=== PATIENT | male | born 2000 | race Caucasian/White ===

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

== ENCOUNTER → 2018-03-02 10:12 | Outpatient (CLI) | payer OTHER, SELFPAY ==
[2018-03-02 11:32] LABS: Albumin, Serum 1.1 g/dL (3.2-5.0); BUN 12 mg/dL (7-18); BUN/Creat Ratio 9.1 RATIO (10-20); Chloride 111 mmol/L (98-107); Cholesterol 181 mg/dL (200); Creatinine, Serum 1.32 mg/dL (0.70-1.30); EST Glomerular Filtration Rate 73 mL/min (>60); Est Glom Filt Rate - Afr Amer 89 mL/min (>60); Glucose 88 mg/dL (74-106); High Density Lipoprotein 48 mg/dL; Phosphorus 4.1 mg/dL (2.5-4.9); Potassium 3.6 mmol/L (3.5-5.1); Sodium Level 144 mmol/L (136-145); Triglycerides 148 mg/dL; Very Low Density Lipoprotein 30 mg/dL (5-40)
[2018-03-05 17:08] LABS: Cyclosporine 455 ng/mL (100-400)
== END ==
PROVIDERS: Family Provider Physician Assistant; PCP Physician Assistant; Visit Provider Internal Medicine Nephrology
DX: E78.5 Hyperlipidemia, unspecified (principal); N04.1 Nephrotic syndrome with focal and segmental glomerular lesions
CPT/HCPCS: 36415; 80061; 80069; 80158

== ENCOUNTER → 2018-04-08 10:40 | Outpatient (CLI) | payer OTHER, SELFPAY ==
[2018-04-08 13:05] LABS: Protein, Urine (Random) 1246.9 mg/dL (<11.9); Protein:Creat Ratio 9818 mg/g CRE (0-200)
[2018-04-08 13:24] LABS: Albumin, Serum 1.1 g/dL (3.2-5.0); BUN 18 mg/dL (7-18); BUN/Creat Ratio 14.4 RATIO (10-20); Calcium,Total 7.9 mg/dL (8.5-10.1); Chloride 111 mmol/L (98-107); Creatinine, Serum 1.25 mg/dL (0.70-1.30); EST Glomerular Filtration Rate 78 mL/min (>60); Est Glom Filt Rate - Afr Amer 95 mL/min (>60); Glucose 100 mg/dL (74-106); Phosphorus 4.5 mg/dL (2.5-4.9); Potassium 3.7 mmol/L (3.5-5.1); Sodium Level 145 mmol/L (136-145)
== END ==
PROVIDERS: Family Provider Physician Assistant; PCP Physician Assistant; Visit Provider Internal Medicine Nephrology
DX: N04.1 Nephrotic syndrome with focal and segmental glomerular lesions (principal)
CPT/HCPCS: 36415; 80069; 80158; 82570; 84156

== ENCOUNTER → 2018-06-11 12:11 | Outpatient (CLI) | payer OTHER, SELFPAY ==
[2018-06-11 13:22] LABS: Albumin, Serum 1.2 g/dL (3.2-5.0); BUN 34 mg/dL (7-18); BUN/Creat Ratio 21.9 RATIO (10-20); Calcium,Total 8.2 mg/dL (8.5-10.1); Chloride 115 mmol/L (98-107); Creatinine, Serum 1.55 mg/dL (0.70-1.30); EST Glomerular Filtration Rate 61 mL/min (>60); Est Glom Filt Rate - Afr Amer 74 mL/min (>60); Glucose 85 mg/dL (74-106); Phosphorus 4.9 mg/dL (2.5-4.9); Potassium 4.1 mmol/L (3.5-5.1); Sodium Level 145 mmol/L (136-145)
== END ==
PROVIDERS: Family Provider Physician Assistant; PCP Physician Assistant; Visit Provider Internal Medicine Nephrology
DX: N04.1 Nephrotic syndrome with focal and segmental glomerular lesions (principal)
CPT/HCPCS: 36415; 80069; 80158; 82570; 84156

== ENCOUNTER → 2018-06-17 13:50 | Outpatient (CLI) | payer OTHER, SELFPAY ==
[2018-06-17 17:50] LABS: Protein, Urine (Random) 483.8 mg/dL (<11.9); Protein:Creat Ratio 11199 mg/g CRE (0-200)
== END ==
PROVIDERS: Family Provider Physician Assistant; PCP Physician Assistant; Visit Provider Internal Medicine Nephrology
DX: N04.1 Nephrotic syndrome with focal and segmental glomerular lesions (principal)
CPT/HCPCS: 82570; 84156

== ENCOUNTER → 2018-08-18 14:32 | Outpatient (CLI) | payer OTHER, SELFPAY ==
[2018-08-18 17:41] LABS: Albumin, Serum 1.6 g/dL (3.2-5.0); BUN 36 mg/dL (7-18); BUN/Creat Ratio 20.5 RATIO (10-20); Calcium,Total 8.5 mg/dL (8.5-10.1); Chloride 110 mmol/L (98-107); Creatinine, Serum 1.76 mg/dL (0.70-1.30); EST Glomerular Filtration Rate 53 mL/min (>60); Est Glom Filt Rate - Afr Amer 64 mL/min (>60); Glucose 87 mg/dL (74-106); Phosphorus 6.7 mg/dL (2.5-4.9); Potassium 4.7 mmol/L (3.5-5.1); Sodium Level 143 mmol/L (136-145)
[2018-08-18 18:18] LABS: Protein:Creat Ratio 7316 mg/g CRE (0-200)
== END ==
PROVIDERS: Family Provider Physician Assistant; PCP Physician Assistant; Visit Provider Internal Medicine Nephrology
DX: N04.1 Nephrotic syndrome with focal and segmental glomerular lesions (principal)
CPT/HCPCS: 36415; 80069; 82570; 84156

== ENCOUNTER → 2018-12-07 10:50 | Outpatient (CLI) | payer OTHER, SELFPAY ==
[2018-12-07 13:32] LABS: Albumin, Serum 1.5 g/dL (3.2-5.0); BUN 29 mg/dL (7-18); BUN/Creat Ratio 15.8 RATIO (10-20); Calcium,Total 8.1 mg/dL (8.5-10.1); Chloride 115 mmol/L (98-107); Creatinine, Serum 1.83 mg/dL (0.70-1.30); EST Glomerular Filtration Rate 50 mL/min (>60); Est Glom Filt Rate - Afr Amer 61 mL/min (>60); Glucose 111 mg/dL (74-106); Phosphorus 4.5 mg/dL (2.5-4.9); Potassium 4.3 mmol/L (3.5-5.1); Sodium Level 145 mmol/L (136-145)
== END ==
PROVIDERS: Family Provider Physician Assistant; PCP Physician Assistant; Visit Provider Internal Medicine Nephrology
DX: N04.1 Nephrotic syndrome with focal and segmental glomerular lesions (principal)
CPT/HCPCS: 36415; 80069

== ENCOUNTER → 2019-01-06 | Outpatient (CLI) | payer OTHER, SELFPAY ==
[2019-01-06 17:19] LABS: Albumin, Serum 1.4 g/dL (3.2-5.0); BUN 32 mg/dL (7-18); BUN/Creat Ratio 18.2 RATIO (10-20); Chloride 113 mmol/L (98-107); Creatinine, Serum 1.76 mg/dL (0.70-1.30); EST Glomerular Filtration Rate 52 mL/min (>60); Est Glom Filt Rate - Afr Amer 63 mL/min (>60); Glucose 85 mg/dL (74-106); Phosphorus 5.1 mg/dL (2.5-4.9); Sodium Level 143 mmol/L (136-145)
== END | disposition home or self-care (01) ==
LOC: POLAB3 15:08
PROVIDERS: Family Provider Physician Assistant; PCP Physician Assistant; Visit Provider Internal Medicine Nephrology
DX: N17.9 Acute kidney failure, unspecified (principal)
CPT/HCPCS: 36415; 80069

== ENCOUNTER → 2019-03-09 13:45 | Outpatient (CLI) | payer OTHER, SELFPAY ==
[2019-03-09 17:16] LABS: Albumin, Serum 1.9 g/dL (3.2-5.0); BUN 50 mg/dL (7-18); BUN/Creat Ratio 20.1 RATIO (10-20); Calcium,Total 8.6 mg/dL (8.5-10.1); Chloride 113 mmol/L (98-107); Creatinine, Serum 2.49 mg/dL (0.70-1.30); EST Glomerular Filtration Rate 35 mL/min (>60); Est Glom Filt Rate - Afr Amer 42 mL/min (>60); Glucose 87 mg/dL (74-106); Potassium 5.2 mmol/L (3.5-5.1); Sodium Level 143 mmol/L (136-145)
[2019-03-09 17:18] LABS: Protein, Urine (Random) 675.2 mg/dL (<11.9); Protein:Creat Ratio 7553 mg/g CRE (0-200)
[2019-03-09 17:21] LABS: Hematocrit 32.2 % (40-54); Hemoglobin 10.8 g/dL (13.0-16.5); Mean Corp Hgb Conc 33.5 g/dL (32-36); Mean Corpuscular Hgb 29.6 pg (27.0-32.0); Mean Corpuscular Volume 88.2 fL (80-94); Platelet Count 224 K/mm3 (150-450); RBC Distribution Width CV 12.1 % (11.6-14.6); RBC Distribution Width SD 39.2 fl (35.1-43.9); Red Blood Count 3.65 M/mm3 (4.6-6.2); White Blood Count 6.6 K/mm3 (4.4-11.0)
[2019-03-09 17:26] LABS: Vitamin D,25 Hydroxy 29.5 ng/mL (29.95-100.01)
[2019-03-10 08:24] LABS: PTHIN 56.9 pg/mL (18.4-80.1)
== END ==
PROVIDERS: Family Provider Physician Assistant; PCP Physician Assistant; Visit Provider Internal Medicine Nephrology
DX: N04.1 Nephrotic syndrome with focal and segmental glomerular lesions (principal); E55.9 Vitamin D deficiency, unspecified
CPT/HCPCS: 36415; 80069; 82306; 82570; 83970; 84156; 85027

== ENCOUNTER → 2019-04-29 14:06 | Outpatient (CLI) | payer OTHER, SELFPAY ==
[2019-04-29 16:11] LABS: Albumin, Serum 1.8 g/dL (3.2-5.0); BUN 40 mg/dL (7-18); Calcium,Total 7.9 mg/dL (8.5-10.1); Chloride 109 mmol/L (98-107); Creatinine, Serum 2.11 mg/dL (0.70-1.30); EST Glomerular Filtration Rate 42 mL/min (>60); Est Glom Filt Rate - Afr Amer 51 mL/min (>60); Glucose 88 mg/dL (74-106); Phosphorus 4.4 mg/dL (2.5-4.9); Potassium 4.1 mmol/L (3.5-5.1); Sodium Level 139 mmol/L (136-145)
== END ==
PROVIDERS: Family Provider Physician Assistant; PCP Physician Assistant; Visit Provider Internal Medicine Nephrology
DX: E87.5 Hyperkalemia (principal)
CPT/HCPCS: 36415; 80069

== ENCOUNTER → 2019-06-23 14:56 | Outpatient (CLI) | payer OTHER, SELFPAY ==
[2019-06-23 17:16] LABS: Albumin, Serum 1.5 g/dL (3.2-5.0); BUN 45 mg/dL (7-18); BUN/Creat Ratio 18.6 RATIO (10-20); Calcium,Total 8.2 mg/dL (8.5-10.1); Chloride 112 mmol/L (98-107); Creatinine, Serum 2.42 mg/dL (0.70-1.30); EST Glomerular Filtration Rate 36 mL/min (>60); Est Glom Filt Rate - Afr Amer 44 mL/min (>60); Glucose 117 mg/dL (74-106); Phosphorus 5.1 mg/dL (2.5-4.9); Potassium 4.2 mmol/L (3.5-5.1); Sodium Level 143 mmol/L (136-145)
[2019-06-23 17:28] LABS: Protein:Creat Ratio 6790 mg/g CRE (0-200)
[2019-06-24 09:11] LABS: PTHIN 52.2 pg/mL (18.4-80.1)
== END ==
PROVIDERS: Family Provider Physician Assistant; PCP Physician Assistant; Visit Provider Internal Medicine Nephrology
DX: N04.8 Nephrotic syndrome with other morphologic changes (principal)
CPT/HCPCS: 36415; 80069; 82570; 83970; 84156

== ENCOUNTER → 2019-10-29 10:35 | Outpatient (CLI) | payer OTHER, SELFPAY ==
[2019-10-29 11:49] LABS: Hemoglobin 11.4 g/dL (13.0-16.5); Mean Corp Hgb Conc 34.5 g/dL (32-36); Mean Corpuscular Hgb 29.5 pg (27.0-32.0); Mean Corpuscular Volume 85.3 fL (80-94); Mean Platelet Vol. 9.7 fl (6.2-12.0); Platelet Count 262 K/mm3 (150-450); RBC Distribution Width CV 12.2 % (11.6-14.6); RBC Distribution Width SD 37.2 fl (35.1-43.9); Red Blood Count 3.87 M/mm3 (4.6-6.2)
[2019-10-29 12:03] LABS: Albumin, Serum 1.8 g/dL (3.2-5.0); BUN 52 mg/dL (7-18); BUN/Creat Ratio 20.5 RATIO (10-20); Calcium,Total 8.1 mg/dL (8.5-10.1); Chloride 111 mmol/L (98-107); Creatinine, Serum 2.54 mg/dL (0.70-1.30); EST Glomerular Filtration Rate 34 mL/min (>60); Est Glom Filt Rate - Afr Amer 41 mL/min (>60); Glucose 91 mg/dL (74-106); Phosphorus 5.5 mg/dL (2.5-4.9); Potassium 4.3 mmol/L (3.5-5.1); Sodium Level 142 mmol/L (136-145)
[2019-10-29 12:30] LABS: 24HR. UA Prot. Total Volume 1925 mL; Creat.Clear Total Volume 1925 mL; Creatinine Clearance 50 ml/min (100-200); Creatinine Serum Creat 2.5 mg/dL (0.8-1.3); Creatinine Urine 95.3 mg/dL (NO RANGE EST.); EST Glomerular Filtration Rate 34 mL/min (>60); Est Glom Filt Rate - Afr Amer 41 mL/min (>60)
[2019-10-29 12:32] LABS: Urine Protein (24 Hour) 523.2 mg/dL (<11.9)
== END ==
LOC: LAB.FUTURE 10:43 → LAB 10:55
PROVIDERS: Family Provider Physician Assistant; PCP Physician Assistant; Referring Provider Internal Medicine Nephrology; Visit Provider Internal Medicine Nephrology
DX: N04.8 Nephrotic syndrome with other morphologic changes (principal)
CPT/HCPCS: 36415; 80069; 81050; 82575; 84156; 85027

== ENCOUNTER → 2020-08-02 15:29 | Outpatient (CLI) | payer OTHER, SELFPAY ==
[2020-08-02 16:39] LABS: Hematocrit 31.3 % (40-54); Hemoglobin 10.6 g/dL (13.0-16.5); Mean Corp Hgb Conc 33.9 g/dL (32-36); Mean Corpuscular Hgb 29.9 pg (27.0-32.0); Mean Corpuscular Volume 88.2 fL (80-94); Mean Platelet Vol. 9.4 fl (6.2-12.0); Platelet Count 222 K/mm3 (150-450); RBC Distribution Width CV 12.3 % (11.6-14.6); RBC Distribution Width SD 39.6 fl (35.1-43.9); Red Blood Count 3.55 M/mm3 (4.6-6.2); White Blood Count 5.4 K/mm3 (4.4-11.0)
[2020-08-02 16:53] LABS: Protein, Urine (Random) 523.8 mg/dL (<11.9); Protein:Creat Ratio 9593 mg/g CRE (0-200)
[2020-08-02 17:22] LABS: Vitamin D,25 Hydroxy 9.7 ng/mL
[2020-08-02 17:24] LABS: Albumin, Serum 1.6 g/dL (3.2-5.0); BUN 40 mg/dL (7-18); BUN/Creat Ratio 16.7 RATIO (10-20); Calcium,Total 7.7 mg/dL (8.5-10.1); Chloride 110 mmol/L (98-107); EST Glomerular Filtration Rate 36 mL/min (>60); Est Glom Filt Rate - Afr Amer 44 mL/min (>60); Ferritin 105 ng/mL (26-388); Glucose 90 mg/dL (74-106); Iron 70 ug/dL (65-175); Iron Binding Capacity,Total 150 ug/dL (250-450); Phosphorus 5.5 mg/dL (2.5-4.9); Potassium 4.7 mmol/L (3.5-5.1); Sodium Level 139 mmol/L (136-145)
== END ==
PROVIDERS: PCP Physician Assistant; Referring Provider Internal Medicine Nephrology; Visit Provider Internal Medicine Nephrology
DX: N04.8 Nephrotic syndrome with other morphologic changes (principal); D63.1 Anemia in chronic kidney disease; E55.9 Vitamin D deficiency, unspecified; N18.9 Chronic kidney disease, unspecified
CPT/HCPCS: 36415; 80069; 82306; 82570; 82728; 83540; 83550; 84156; 85027

== ENCOUNTER → 2021-02-01 09:34 | Outpatient (CLI) | payer OTHER, SELFPAY ==
[2021-02-01 12:03] LABS: Hematocrit 31.3 % (40-54); Hemoglobin 10.9 g/dL (13.0-16.5); Mean Corp Hgb Conc 34.8 g/dL (32-36); Mean Corpuscular Hgb 29.2 pg (27.0-32.0); Mean Corpuscular Volume 83.9 fL (80-94); Mean Platelet Vol. 9.8 fl (6.2-12.0); Platelet Count 224 K/mm3 (150-450); RBC Distribution Width CV 12.7 % (11.6-14.6); Red Blood Count 3.73 M/mm3 (4.6-6.2); White Blood Count 7.3 K/mm3 (4.4-11.0)
[2021-02-01 12:21] LABS: ALB/GLOB Ratio 0.6 RATIO (0.9-2.4); AST(SGOT) 24 U/L (15-37); Alanine Aminotransfer ALT/SGPT 24 U/L (16-61); Albumin, Serum 1.8 g/dL (3.2-5.0); Alkaline Phosphatase 63 U/L (45-117); Anion Gap 7 (5-15); BUN 47 mg/dL (7-18); BUN/Creat Ratio 18.4 RATIO (10-20); Calcium,Total 8.1 mg/dL (8.5-10.1); Chloride 105 mmol/L (98-107); Cholesterol 308 mg/dL (200); Creatinine, Serum 2.56 mg/dL (0.70-1.30); EST Glomerular Filtration Rate 33 mL/min (>60); Est Glom Filt Rate - Afr Amer 40 mL/min (>60); Glucose 83 mg/dL (74-106); High Density Lipoprotein 54 mg/dL; Potassium 3.9 mmol/L (3.5-5.1); Protein, Total 4.8 g/dL (6.4-8.2); Protein, Urine (Random) 246.2 mg/dL (<11.9); Protein:Creat Ratio 8432 mg/g CRE (0-200); Sodium Level 138 mmol/L (136-145); Triglycerides 95 mg/dL; Very Low Density Lipoprotein 19 mg/dL (5-40)
== END ==
LOC: LAB.FUTURE 09:34 → POLAB3 09:43
PROVIDERS: PCP Physician Assistant; Visit Provider Internal Medicine Nephrology
DX: N18.32 Chronic kidney disease, stage 3b (principal); N04.5 Nephrotic syndrome with diffuse mesangiocapillary glomerulonephritis; E78.5 Hyperlipidemia, unspecified
CPT/HCPCS: 36415; 80053; 80061; 82570; 84156; 85027

== ENCOUNTER → 2021-05-07 15:03 | Outpatient (CLI) | payer OTHER, SELFPAY ==
[2021-05-07 17:57] LABS: BUN 56 mg/dL (7-18); BUN/Creat Ratio 18.9 RATIO (10-20); Calcium,Total 8.1 mg/dL (8.5-10.1); Chloride 109 mmol/L (98-107); Creatinine, Serum 2.96 mg/dL (0.70-1.30); EST Glomerular Filtration Rate 28 mL/min (>60); Est Glom Filt Rate - Afr Amer 34 mL/min (>60); Glucose 90 mg/dL (74-106); Phosphorus 4.8 mg/dL (2.5-4.9); Potassium 4.7 mmol/L (3.5-5.1); Sodium Level 138 mmol/L (136-145)
[2021-05-07 17:59] LABS: Protein, Urine (Random) 375.4 mg/dL (<11.9); Protein:Creat Ratio 10257 mg/g CRE (0-200)
== END ==
PROVIDERS: PCP Physician Assistant; Visit Provider Internal Medicine Nephrology
DX: N18.32 Chronic kidney disease, stage 3b (principal); E55.9 Vitamin D deficiency, unspecified; N04.5 Nephrotic syndrome with diffuse mesangiocapillary glomerulonephritis
CPT/HCPCS: 36415; 80069; 82306; 82570; 84156

== ENCOUNTER 2021-08-22 13:55 | Outpatient (CLI) | payer OTHER, SELFPAY ==
[2021-08-22 16:27] LABS: Hematocrit 31.8 % (40-54); Hemoglobin 11.2 g/dL (13.0-16.5); Mean Corp Hgb Conc 35.2 g/dL (32-36); Mean Corpuscular Hgb 30.3 pg (27.0-32.0); Mean Corpuscular Volume 85.9 fL (80-94); Mean Platelet Vol. 10.1 fl (6.2-12.0); Platelet Count 221 K/mm3 (150-450); RBC Distribution Width CV 12.6 % (11.6-14.6); RBC Distribution Width SD 39.1 fl (35.1-43.9); White Blood Count 6.9 K/mm3 (4.4-11.0)
[2021-08-22 16:35] LABS: Albumin, Serum 2.1 g/dL (3.2-5.0); BUN 45 mg/dL (7-18); BUN/Creat Ratio 14.7 RATIO (10-20); Calcium,Total 7.8 mg/dL (8.5-10.1); Chloride 110 mmol/L (98-107); Creatinine, Serum 3.07 mg/dL (0.70-1.30); EST Glomerular Filtration Rate 27 mL/min (>60); Est Glom Filt Rate - Afr Amer 33 mL/min (>60); Glucose 89 mg/dL (74-106); Phosphorus 4.2 mg/dL (2.5-4.9); Potassium 4.3 mmol/L (3.5-5.1); Sodium Level 138 mmol/L (136-145)
[2021-08-22 16:46] LABS: Protein, Urine (Random) 450.4 mg/dL (<11.9); Protein:Creat Ratio 8797 mg/g CRE (0-200)
== END 2021-08-22 23:59 | disposition short-term general hospital (02) ==
LOC: POLAB3 13:56
PROVIDERS: PCP Physician Assistant; Visit Provider Internal Medicine Nephrology
DX: N18.32 Chronic kidney disease, stage 3b (principal)
CPT/HCPCS: 36415; 80069; 82570; 84156; 85027

== ENCOUNTER → 2022-05-07 | Outpatient (CLI) | payer OTHER, SELFPAY | END | disposition home or self-care (01) | LOC: LAB.FUTURE 10:23 | PROVIDERS: PCP Physician Assistant; Visit Provider Internal Medicine Nephrology | DX: N18.32 Chronic kidney disease, stage 3b (principal) ==

== ENCOUNTER → 2022-05-07 | Outpatient (CLI) | payer OTHER, SELFPAY | END | disposition home or self-care (01) | LOC: LAB.FUTURE 10:22 | PROVIDERS: PCP Physician Assistant; Visit Provider Internal Medicine Nephrology | DX: N18.32 Chronic kidney disease, stage 3b (principal); N04.5 Nephrotic syndrome with diffuse mesangiocapillary glomerulonephritis ==

== ENCOUNTER → 2022-05-07 | Outpatient (CLI) | payer OTHER, SELFPAY ==
[2022-05-07 12:35] LABS: Hematocrit 33.2 % (40-54); Hemoglobin 11.7 g/dL (13.0-16.5); Mean Corp Hgb Conc 35.2 g/dL (32-36); Mean Corpuscular Hgb 30.4 pg (27.0-32.0); Mean Corpuscular Volume 86.2 fL (80-94); Mean Platelet Vol. 10.1 fl (6.2-12.0); Platelet Count 233 K/mm3 (150-450); RBC Distribution Width CV 12.6 % (11.6-14.6); RBC Distribution Width SD 39.2 fl (35.1-43.9); Red Blood Count 3.85 M/mm3 (4.6-6.2)
[2022-05-07 12:56] LABS: PTHIN 205.7 pg/mL (18.4-80.1)
[2022-05-07 13:39] LABS: Albumin, Serum 2.1 g/dL (3.2-5.0); BUN 60 mg/dL (7-18); BUN/Creat Ratio 15.6 RATIO (10-20); Calcium,Total 8.5 mg/dL (8.5-10.1); Chloride 114 mmol/L (98-107); Creatinine, Serum 3.85 mg/dL (0.70-1.30); EST Glomerular Filtration Rate 21 mL/min (>60); Est Glom Filt Rate - Afr Amer 25 mL/min (>60); Glucose 84 mg/dL (74-106); Phosphorus 5.2 mg/dL (2.5-4.9); Potassium 3.9 mmol/L (3.5-5.1); Sodium Level 143 mmol/L (136-145)
[2022-05-07 13:41] LABS: Creat.Clear Total Volume 2000 mL; Creatinine Serum Creat 3.9 mg/dL (0.8-1.3); EST Glomerular Filtration Rate 20 mL/min (>60); Est Glom Filt Rate - Afr Amer 20 mL/min (>60)
[2022-05-08 08:45] LABS: 24HR. UA Prot. Total Volume 2000 mL
[2022-05-14 12:32] LABS: Creatinine Clearance 22 ml/min (100-200)
== END | disposition home or self-care (01) ==
LOC: POLAB3 10:33
PROVIDERS: PCP Physician Assistant; Visit Provider Internal Medicine Nephrology
DX: N18.32 Chronic kidney disease, stage 3b (principal)
CPT/HCPCS: 36415; 80069; 81050; 82575; 83970; 84156; 85027

== ENCOUNTER → 2022-07-01 | Outpatient (CLI) | payer OTHER, SELFPAY ==
[2022-07-01 14:21] LABS: Hematocrit 30.3 % (40-54); Hemoglobin 10.6 g/dL (13.0-16.5); Mean Corpuscular Hgb 30.8 pg (27.0-32.0); Mean Corpuscular Volume 88.1 fL (80-94); Mean Platelet Vol. 9.5 fl (6.2-12.0); Platelet Count 176 K/mm3 (150-450); RBC Distribution Width CV 13.1 % (11.6-14.6); RBC Distribution Width SD 42.3 fl (35.1-43.9); Red Blood Count 3.44 M/mm3 (4.6-6.2); White Blood Count 6.1 K/mm3 (4.4-11.0)
[2022-07-01 14:58] LABS: PTHIN 167.9 pg/mL (18.4-80.1)
[2022-07-01 14:59] LABS: ALB/GLOB Ratio 0.6 RATIO (0.9-2.4); AST(SGOT) 27 U/L (15-37); Alanine Aminotransfer ALT/SGPT 65 U/L (16-61); Alkaline Phosphatase 69 U/L (45-117); Anion Gap 7 (5-15); BUN 52 mg/dL (7-18); Chloride 113 mmol/L (98-107); Cholesterol 145 mg/dL (200); Creatinine, Serum 3.25 mg/dL (0.70-1.30); EST Glomerular Filtration Rate 25 mL/min (>60); Est Glom Filt Rate - Afr Amer 30 mL/min (>60); Globulin 3.2 g/dL (2.2-4.2); Glucose 101 mg/dL (74-106); High Density Lipoprotein 65 mg/dL; Potassium 4.1 mmol/L (3.5-5.1); Protein, Total 5.2 g/dL (6.4-8.2); Sodium Level 141 mmol/L (136-145); Triglycerides 128 mg/dL; Very Low Density Lipoprotein 26 mg/dL (5-40)
== END | disposition home or self-care (01) ==
LOC: POLAB3 13:49
PROVIDERS: PCP Physician Assistant; Visit Provider Internal Medicine Nephrology
DX: N26.9 Renal sclerosis, unspecified (principal); D63.8 Anemia in other chronic diseases classified elsewhere
CPT/HCPCS: 36415; 80053; 80061; 83970; 84100; 85027

== ENCOUNTER → 2022-10-14 | Outpatient (CLI) | payer OTHER, SELFPAY ==
[2022-10-14 13:35] LABS: Protein, Urine (Random) 645.1 mg/dL (<11.9); Protein:Creat Ratio 8789 mg/g CRE (0-200)
[2022-10-14 13:37] LABS: ALB/GLOB Ratio 0.7 RATIO (0.9-2.4); AST(SGOT) 16 U/L (15-37); Alanine Aminotransfer ALT/SGPT 20 U/L (16-61); Albumin, Serum 2.1 g/dL (3.2-5.0); Alkaline Phosphatase 74 U/L (45-117); Anion Gap 6 (5-15); BUN 45 mg/dL (7-18); BUN/Creat Ratio 13.4 RATIO (10-20); Calcium,Total 8.4 mg/dL (8.5-10.1); Chloride 116 mmol/L (98-107); Cholesterol 133 mg/dL (200); Creatinine, Serum 3.37 mg/dL (0.70-1.30); EST Glomerular Filtration Rate 24 mL/min (>60); Est Glom Filt Rate - Afr Amer 29 mL/min (>60); Globulin 3.2 g/dL (2.2-4.2); Glucose 85 mg/dL (74-106); High Density Lipoprotein 55 mg/dL; Phosphorus 4.4 mg/dL (2.5-4.9); Potassium 4.6 mmol/L (3.5-5.1); Protein, Total 5.3 g/dL (6.4-8.2); Sodium Level 143 mmol/L (136-145); Triglycerides 202 mg/dL; Very Low Density Lipoprotein 40 mg/dL (5-40)
== END | disposition home or self-care (01) ==
LOC: POLAB3 10:10
PROVIDERS: PCP Physician Assistant; Visit Provider Internal Medicine Nephrology
DX: N18.4 Chronic kidney disease, stage 4 (severe) (principal)
CPT/HCPCS: 36415; 80053; 80061; 82570; 84100; 84156

== ENCOUNTER → 2023-02-13 | Outpatient (CLI) | payer OTHER, SELFPAY ==
[2023-02-13 17:49] LABS: Hematocrit 30.8 % (40-54); Hemoglobin 10.2 g/dL (13.0-16.5); Mean Corp Hgb Conc 33.1 g/dL (32-36); Mean Corpuscular Hgb 29.4 pg (27.0-32.0); Mean Corpuscular Volume 88.8 fL (80-94); Platelet Count 178 K/mm3 (150-450); RBC Distribution Width CV 12.7 % (11.6-14.6); RBC Distribution Width SD 41.2 fl (35.1-43.9); Red Blood Count 3.47 M/mm3 (4.6-6.2); White Blood Count 5.4 K/mm3 (4.4-11.0)
[2023-02-13 18:37] LABS: BUN 52 mg/dL (7-18); BUN/Creat Ratio 12.6 RATIO (10-20); Calcium,Total 8.4 mg/dL (8.5-10.1); Chloride 113 mmol/L (98-107); Creatinine, Serum 4.14 mg/dL (0.70-1.30); EST Glomerular Filtration Rate 19 mL/min (>60); Est Glom Filt Rate - Afr Amer 23 mL/min (>60); Glucose 83 mg/dL (74-106); Phosphorus 4.4 mg/dL (2.5-4.9); Potassium 5.3 mmol/L (3.5-5.1); Sodium Level 138 mmol/L (136-145)
[2023-02-13 18:46] LABS: Protein:Creat Ratio 9457 mg/g CRE (0-200)
== END | disposition home or self-care (01) ==
LOC: POLAB3 15:54
PROVIDERS: PCP Physician Assistant; Visit Provider Internal Medicine Nephrology
DX: N18.4 Chronic kidney disease, stage 4 (severe) (principal); D63.8 Anemia in other chronic diseases classified elsewhere; N04.5 Nephrotic syndrome with diffuse mesangiocapillary glomerulonephritis
CPT/HCPCS: 36415; 80069; 82570; 84156; 85027

== ENCOUNTER → 2023-02-18 | Outpatient (CLI) | payer OTHER, SELFPAY ==
[2023-02-18 13:14] LABS: Anion Gap 5 (5-15); BUN 57 mg/dL (7-18); BUN/Creat Ratio 13.2 RATIO (10-20); Calcium,Total 8.6 mg/dL (8.5-10.1); Chloride 119 mmol/L (98-107); Creatinine, Serum 4.33 mg/dL (0.70-1.30); EST Glomerular Filtration Rate 18 mL/min (>60); Est Glom Filt Rate - Afr Amer 22 mL/min (>60); Glucose 90 mg/dL (74-106); Potassium 4.8 mmol/L (3.5-5.1); Sodium Level 142 mmol/L (136-145)
[2023-02-18 13:24] LABS: PTHIN 107.1 pg/mL (18.4-80.1)
== END | disposition home or self-care (01) ==
LOC: POLAB3 12:06
PROVIDERS: PCP Physician Assistant; Visit Provider Internal Medicine Nephrology
DX: E87.5 Hyperkalemia (principal); N25.81 Secondary hyperparathyroidism of renal origin
CPT/HCPCS: 36415; 80048; 83970

== ENCOUNTER → 2023-05-20 | Outpatient (CLI) | payer OTHER, SELFPAY ==
[2023-05-20 16:03] LABS: Hematocrit 27.8 % (40-54); Hemoglobin 9.2 g/dL (13.0-16.5); Mean Corp Hgb Conc 33.1 g/dL (32-36); Mean Corpuscular Hgb 29.8 pg (27.0-32.0); Mean Platelet Vol. 10.2 fl (6.2-12.0); Platelet Count 175 K/mm3 (150-450); RBC Distribution Width CV 12.8 % (11.6-14.6); RBC Distribution Width SD 41.8 fl (35.1-43.9); Red Blood Count 3.09 M/mm3 (4.6-6.2); White Blood Count 5.4 K/mm3 (4.4-11.0)
[2023-05-20 16:10] LABS: ALB/GLOB Ratio 0.6 RATIO (0.9-2.4); AST(SGOT) 20 U/L (15-37); Alanine Aminotransfer ALT/SGPT 32 U/L (16-61); Albumin, Serum 1.9 g/dL (3.2-5.0); Alkaline Phosphatase 67 U/L (45-117); Anion Gap 6 (5-15); BUN 55 mg/dL (7-18); BUN/Creat Ratio 12.8 RATIO (10-20); Calcium,Total 7.8 mg/dL (8.5-10.1); Chloride 117 mmol/L (98-107); EST Glomerular Filtration Rate 18 mL/min (>60); Est Glom Filt Rate - Afr Amer 22 mL/min (>60); Ferritin 117 ng/mL (26-388); Glucose 93 mg/dL (74-106); Iron 65 ug/dL (65-175); Iron Binding Capacity,Total 171 ug/dL (250-450); Potassium 4.7 mmol/L (3.5-5.1); Protein, Total 4.9 g/dL (6.4-8.2); Sodium Level 141 mmol/L (136-145)
== END | disposition home or self-care (01) ==
LOC: POLAB3 14:46
PROVIDERS: PCP Physician Assistant; Visit Provider Internal Medicine Nephrology
DX: N18.4 Chronic kidney disease, stage 4 (severe) (principal); D63.1 Anemia in chronic kidney disease
CPT/HCPCS: 36415; 80053; 82728; 83540; 83550; 85027

== ENCOUNTER → 2023-07-23 | Outpatient (CLI) | payer OTHER, SELFPAY ==
[2023-07-23 15:51] LABS: Albumin, Serum 1.9 g/dL (3.2-5.0); BUN 54 mg/dL (7-18); BUN/Creat Ratio 11.7 RATIO (10-20); Chloride 118 mmol/L (98-107); Creatinine, Serum 4.63 mg/dL (0.70-1.30); EST Glomerular Filtration Rate 16 mL/min (>60); Est Glom Filt Rate - Afr Amer 20 mL/min (>60); Glucose 91 mg/dL (74-106); Phosphorus 4.6 mg/dL (2.5-4.9); Potassium 4.7 mmol/L (3.5-5.1); Sodium Level 145 mmol/L (136-145)
[2023-07-23 16:18] LABS: 24HR. UA Prot. Total Volume 1850 mL; Creat.Clear Total Volume 1850 mL; Creatinine Clearance 15 ml/min (100-200); Creatinine Serum Creat 4.6 mg/dL (0.8-1.3); Creatinine Urine 56.8 mg/dL (NO RANGE EST.); EST Glomerular Filtration Rate 16 mL/min (>60); Est Glom Filt Rate - Afr Amer 20 mL/min (>60)
== END | disposition home or self-care (01) ==
LOC: POLAB3 15:02
PROVIDERS: PCP Physician Assistant; Visit Provider Internal Medicine Nephrology
DX: N18.4 Chronic kidney disease, stage 4 (severe) (principal)
CPT/HCPCS: 36415; 80069; 81050; 82575; 83970; 84156

== ENCOUNTER → 2023-08-19 | Outpatient (CLI) | payer OTHER, SELFPAY ==
--- OUTSIDE RECORDS SUMMARY | 2023-08-19 12:51 | XMS RPT_ITS | CCD ---
Author Name Unknown Address [address] [place] [address] Organization [facility] Care Team Providers Care Generalist Name Role Phone Mayra Kay Primary Care Provider [phone] AJ DAVIES Attending Unavailable BRAVO, MRobby [place] Primary Care Unavailable MARLEN ROSAS Referring Unavailable BRAVO, M [place] Primary Care Unavailable TASHI CRAWFORD Referring Unavailable BRAVO, M [place] Primary Care Unavailable POGGIO, EDISON D Referring Unavailable BRAVO, M [place] Primary Care Unavailable TASHI CRAWFORD Referring Unavailable BRAVO, M [place] Primary Care Unavailable TASHI CRAWFORD Referring Unavailable KOREY HUI C Referring Unavailable BRAVO, M [place] Primary Care Unavailable LINO HUIIN C Referring Unavailable BRAVO, M [place] Primary Care Unavailable POGGIO, EDISON D Referring Unavailable BRAVO, M [place] Primary Care Unavailable WEDriss KOREY C Referring Unavailable BRAVO, M [place] Primary Care Unavailable LINO HUIIN C Referring Unavailable BRAVO, M [place] Primary Care Unavailable POGGIO, EDISON D Referring Unavailable BRAVO, M [place] Primary Care Unavailable ASHLEY LUDWIG Attending Unavailable POGGIO, EDISON D Referring Unavailable BRAVO, M MARY Primary Care Unavailable BRAVO, M [place] Primary Care Unavailable POGGIO, EDISON D Referring Unavailable BRAVO, M [place] Primary Care Unavailable TASHI CRAWFORD Referring Unavailable BRAVO, M [place] Primary Care Unavailable AYESHA GRIFFIN Referring Unavailable POGGIO, EDISON D Referring Unavailable BRAVO, M [place] Primary Care Unavailable POGGIO, EDISON D Referring Unavailable BRAVO, M [place] Primary Care Unavailable BRAVO, M [place] Primary Care Unavailable AYESHA GRIFFIN Referring Unavailable Allergies Allergy Classification Reported Allergen(s) Allergy Type Date of Onset Reaction(s) Facility (1 source) Nutmeg oil Propensity to adverse reactions to drug 9 Swelling [facility] (1 source) pecan allergenic extract Drug Allergy 9 Swelling [facility] (1 source) *Seasonal Propensity to adverse reactions to substance 1 [facility] (1 source) Nutmeg oil; Translations: [NUTMEG OIL (MYRISTICA SEED OIL)] Propensity to adverse reactions to drug (disorder) [facility] (1 source) pecan pollen extract; Translations: [PECAN NUT] Drug Allergy 9 [facility] (1 source) Seasonal allergy; Translations: [SEASONAL ALLERGIES] Propensity to adverse reactions (disorder) 1 [facility] Medications Current Medications Medication Drug Class(es) Dates Sig (Normalized) Sig (Original) corticotropin 80 unt/ml injectable solution (1 source) Adrenocorticotropic Hormone apply 0.5 mL by subcutaneous injection two times weekly Corticotropin 80 UNIT/ML Gel Inject 0.5 mL under the skin twice a week. 0 Active famotidine 20 mg oral tablet (1 source) Histamine-2 Receptor Antagonist Start: 06-28-2022 take 1 tablet by mouth every twenty-four hours as needed faMOTIdine 20 MG tablet Take 1 tablet by mouth daily as needed. 0 06/28/2022 Active fluticasone propionate 0.05 mg/actuat metered dose nasal spray (1 source) Corticosteroid Start: 06-28-2022 fluticasone 50 MCG/ACT Suspension nasal spray 2 sprays by Does Not Apply route daily. 0 06/28/2022 Active rosuvastatin calcium 20 mg oral tablet (1 source) HMG-CoA Reductase Inhibitor Start: 02-22-2023 take 1 tablet by mouth at bedtime Rosuvastatin 20 MG tablet Take 1 tablet by mouth at bedtime. 0 02/22/2023 Active valsartan 80 mg oral tablet (1 source) Angiotensin 2 Receptor Juan Daniel Start: 03-17-2023 take 1 tablet by mouth once daily Valsartan 80 MG tablet Take 1 tablet by mouth daily. 0 03/17/2023 Active Problems Active Problems Problem Classification Problem Date Documented Da te Episodic/Chronic Chronic kidney disease (8 sources) End-stage renal disease; Translations: [End stage renal disease] Onset: 12-02-2022 03-27-2023 Chronic Essential hypertension (2 sources) Hypertensive disorder; Translations: [Essential (primary) hypertension] Onset: 12-02-2022 03-24-2023 Chronic Hypertension with complications and secondary hypertension (1 source) Renal hypertension; Translations: [Hypertensive chronic kidney disease with stage 1 through stage 4 chronic kidney disease, or unspecified chronic kidney disease] Onset: 06-28-2022 03-24-2023 Chronic Nephritis; nephrosis; renal sclerosis (3 sources) Nephrotic syndrome; Translations: [Nephrotic syndrome with unspecified morphologic changes] Onset: 10-25-2014 03-24-2023 Chronic Other aftercare (2 sources) Encounter for therapeutic drug level monitoring; Translations: [Encounter for therapeutic drug level monitoring] Onset: 03-27-2023 Episodic Past or Other Problems Problem Classification Problem Date Documented Da te Episodic/Chronic Epilepsy; convulsions (1 source) Seizure; Translations: [Unspecified convulsions] Onset: 12-02-2014 03-24-2023 Episodic Immunizations and screening for infectious disease (5 sources) Patient encounter status; Translations: [Encounter for screening for other viral diseases] Onset: 12-02-2022 03-27-2023 Episodic Results Test Name Value Interpretation Reference Range Facil ity Vital Signs Date Time Vital Sign Value Performing Clinician Faci lity 03-27-2023 10:27-0400 Body height 172.7 cm THERESE Serrano MD Work Phone: [facility] 03-27-2023 10:27-0400 Body mass index (BMI) [Ratio] 17.91 kg/m2 THERESE Serrano MD Work Phone: [facility] 03-27-2023 10:27-0400 Body temperature 97.2 [degF] THERESE Serrano MD Work Phone: [facility] 03-27-2023 10:27-0400 Body weight 53.43 kg THERESE Serrano MD Work Phone: [facility] 03-27-2023 10:27-0400 Diastolic blood pressure 89 mm[Hg] THERESE Serrano MD Work Phone: [facility] 03-27-2023 10:27-0400 Heart rate 68 /min THERESE Serrano MD Work Phone: [facility] 03-27-2023 10:27-0400 Systolic blood pressure 133 mm[Hg] THERESE Serrano MD Work Phone: [facility] Encounters Encounter Date Encounter Type Care Provider Facility Start: 07-23-2023 End: 07-24-2023 ambulatory KOREY C WEE Facility:[facility] Start: 06-09-2023 End: 06-10-2023 ambulatory KOREY C WEE Facility:[facility] Start: 05-16-2023 End: 05-17-2023 ambulatory KOREY C WEE Facility:[facility] Start: 04-03-2023 End: 04-04-2023 ambulatory KOREY C WEE Facility:[facility] Start: 03-27-2023 ambulatory AJ DAVIES Facility: [facility] Start: 03-27-2023 Anes nerve muscle td n fascia&bursa forearm wrist AJ DAVIES Facility:[facility] Start: 03-27-2023 Encounter for other preprocedural examination AJ DAVIES Facility:[facility] Start: 03-27-2023 Encounter for preprocedural cardiovascular examination AJ DAVIES [facility] Start: 03-27-2023 End: 03-27-2023 Office outpatient new 60 minutes THERESE Dean MD Work Phone: [facility] Procedures Date Procedure Procedure Detail Performing Clinician Start: 03-27-2023 End: 03-27-2023 Antibody screen THERESE Serrano MD Work Phone: Plan of Treatment Date Care Activity Detail Author Start: 02-08-2048 Zoster vaccine hzv l faina for subcutaneous use ZOSTER (SHINGLES) VACCINE (1 of 2) [facility] Start: 04-04-2023 Influenza vaccination INFLUENZA VACC INE (#1) [facility] Start: 03-27-2023 End: 03-27-2024 CMV IGG AB [facility] Immunizations Immunization Date Immunization Notes Care Provider Norberto torres 05-11-2021 influenza virus vaccine, unspecified formulation THERESE Serrano MD Work Phone: [facility] 03-27-1999 zoster vaccine, unspecified formulation THERESE Serrano MD Work Phone: [facility] Payers Date Payer Category Payer Unknown [id number] 2013 Unknown [id number] 1998 Unknown [id number] Social History Date Type Detail Facility Start: 03-24-2023 Tobacco smoking stat [facility] Never smoked tobacco [facility] Start: 03-24-2023 Tobacco use and exposure Smokeless tobacco non-user [facility] Start: 03-27-2023 Alcohol intake Ex-drinker (finding) [facility] Start: 03-27-2023 History of Social function [facility] Start: 03-27-[address] [facility] Start: 03-24-2023 Alcohol Comment Last: 2020 [facility] Start: 1998 Sex Assigned At Not on file O [facility] Clinical Notes 10-17-2022 to 03-27-2023 Jaron Dinero RN - 03/27/2023 10:40 AM Brittany Dinero RN - 03/27/2023 10:40 AM Caridad Davies MD, THERESE - 03/27/2023 10:40 AM Brittany Dinero RN - 03/27/2023 10:40 AM EDTPatient Instructions Note Date & Type Note Facility 03-27-2023 History of Present illness Narrative Patient and support person provided with link to review education video prior to evaluation appointment. Patient and support person both asked to review the lutz points of the education video and given the opportunity to ask questions. No barriers to learning for patient or support person. Patient asked to fill out all electronic and paper forms to completion. Educational video coverin. Indications and contraindications for kidney transplant; 2. Alternative treatments; 3. Risks and benefits of transplant; 4. Kidney allocation system; 5. What to do while on the Wait List; 6. Being called in for transplant; 7. Surgical process and post-transplant follow-up; 8. Facts about living donation and donor exchange; 9. Immunosuppression and post clinic and lab schedule; 10. One year survival data from Scientific Registry for Transplant Specific; 11. Donor disease transmission risk factors; 12. Living donor risks and complications KDPI: Yes, Patient will participate; (+) Hep C Organ Offers: Yes, Patient will participate; Review of Systems: Const: negative for fever and hot flashes, malaise Ophthalmic: negative for visual changes ENT: negative heaches CV: negative for chest pain, dyspnea on exertion, edema, irregular heartbeat and shortness of breath Lungs: negative for cough, shortness of breath and sputum changes GI: negative for abdominal pain, blood in stools, change in bowel habits, change in stools, hematemesis and melena, appetite loss and nausea/vomiting : negative for dysuria and hematuria MSK: negative for joint pain or joint deformity Neuro: negative for confusion Psych: negative for depression, alert, oriented Derm: negative for rash or pruritus The remainder of the system review is negative. Nursing Assessment: Akilah Crawford arrived to the [facility] pre transplant clinic with Mother (Ana Crawford). Education reviewed. Labs were drawn. The patient was evaluated by the pre-scan coordinator, the social science professor and Dr. Aj Davies MD. All questions answered. New recipient Evaluation: Thank you for requesting a consultation on Akilah Crawford is a 23 y.o.male for a kidney transplant in [facility]. Below contains a detailed initial evaluation of his candidacy. 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 He thinks his ast cyclophosphamide was in 2014. He was first aware of kidney disease in 2011 when he had ear infection and swelling. He started seeing a equine manager around that time. He has a known history of proteinuria; a known history of hematuria. His kidney function continued to decline, since 2013. He currently has some symptoms of uremia- nausea, some weight loss, less appetite, fatigue, daytime somnolence, no itching. He has previously been evaluated for kidney transplant at [facility], comes to [facility] for evaluation to be enrolled in [facility] trial. Other notable medical history: 1. HTN since 2011 Cause of CKD: MPGN Potential Living Donors: Yes GFR if not on dialysis: 19 ml/min Days on Dialysis (Dialysis Start Date): (Not currently on dialysis) Mode of Dialysis: na Dialysis Access: no Missed dialysis treatments: na Shortened dialysis treatments: na Prior Transplant: no Blood Transfusions: no Pregnancies: na Direct-acting oral anticoagulant use: no Effort Tolerance: fair Weight stable: no, going down slowly Medication allergies: *seasonal, Nutmeg oil (myristica oil), and Pecan extract allergy skin test Current Outpatient Prescriptions: Outpatient Medications Prior to Visit Medication Sig Dispense Refill Corticotropin 80 UNIT/ML Gel Inject 0.5 mL under the skin twice a week. faMOTIdine 20 MG tablet Take 1 tablet by mouth daily as needed. fluticasone 50 MCG/ACT Suspension nasal spray 2 sprays by Does Not Apply route daily. Rosuvastatin 20 MG tablet Take 1 tablet by mouth at bedtime. Valsartan 80 MG tablet Take 1 tablet by mouth daily. No facility-administered medications prior to visit. 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 TONSILLECTOMY Family History: no renal disease in family Social history Mr. 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 HEENT - Mucous membranes moist. Chest: Lungs clear to ausculatation w/o wheezes/ rhonchi/ crackles. Heart - S1 and S2 clear w/o murmur, gallop, or rub. JVP not elevated. Abd - Soft. + BS. No bruit. Non tender. No organomegaly. Ext - Warm. No cyanosis. No dependent edema. BL peripheral pulses are palpable Dialysis Access: none [facility] with pre-[facility] coordinator: Assessment and Plan: At this time, Akilah Crawford is at moderately high risk based on his comorbidities, including MPGN type-1 /FSGS with a risk of recurrence and history of immunosuppression since 2013. His case will be presented at a forthcoming Multidisciplinary Patient Selection Meeting, where input from all the members of the transplant team will be solicited and a decision regarding the evaluation and listing status of Mr. Crawford made. I have also emphasized to Mr. Crawford that data indicates that his life expectancy gain will be greatest if he could minimize the need for dialysis prior to getting a transplant. Living donor kidney transplantation offers him the best opportunity to accomplish this. Though Akilah Crawford may think he has a living donor, We have reviewed with him a variety of strategies that other recipients have used to recruit potential donors and have provided information related to the Living Donor Program. To guide our assessment of his kidney transplant candidacy and waiting list status, the following is specifically required: 1. Listing labs and CXR 2. Discussion at Kidney transplant selection committee meeting for enrollment in [place] trial. If he is listed and no living donor materializes, Mr. Crawford will need to return for re-evaluation 1-2 times a year until transplanted to ensure that he remains a suitable candidate. We would greatly appreciate your continued forwarding of pertinent medical records to the Transplant Center in order to assist us in our assessment. I have also advised Mr. Crawford to ensure that he is up to date with his primary health screening and panel of recommended immunizations (influenza, pneumococcal, shingles, hepatitis B virus, tetanus, SARS-COV-2). Required documentation: During his visit, Mr. Crawford participated in our transplant educational session where we reviewed both our center as well as national outcomes with him and discussed in detail the process of evaluation and waiting list care, the option of multi-listing, the outcome benefits of living donor transplantation, the donor kidney allocation system including the KDPI (Kidney Donor Profile Index) and anticipated waiting times, organ donor risk criteria, the relative paucity of higher quality organs, the risks and benefits of kidney transplantation, including those related to the surgery in addition to side effects of current immunosuppressive agents, ongoing need for antihypertension medications, opportunistic infections, malignancy and donor-derived disease transmission. Mr. Crawford verbalized understanding and had the opportunity to ask questions. Once again, thank you for the opportunity to evaluate Akilah Crawford Aj Davies MD, THERESE Knitted Cloth Examiner [facility] [place] At this time, pt's evaluation was completed for today. Pt had the opportunity to meet with the Transplant Physician, and the Nurse Burner Tender. Pt/Mother were provided an opportunity to ask questions of each specialist throughout the visit. Recommendations for additional testing, consultations and/or labwork, if necessary, were made, and orders were placed. AVS/Discharge Instructions were provided to the patient. The AVS/DI was reviewed with the pt/mother, and the pt/mother were provided the opportunity to ask questions. All questions were asked and answered at this time. The pt was discharged. No Hep B vaccines were given today. Pt was encouraged to consider obtaining the Hepatitis B vaccination series. Pt was notified that the Hepatitis B vaccination series is available at the [facility] on the ground floor or their local health department. documented in this encounter [facility] 03-27-2023 Instructions Jaron Dinero RN - 03/27/2023 10:40 AM EDT Items Required for Completion Prior to Patient Selection Committee: Items to be completed today: Evaluation by a Transplant Canopy Stringer/Transplant Surgeon; Lab Draw; Schedule the Social Work Appointment; It is the expectation of the [facility] that you will complete all of the items above using the following timeline: April: All required appointments and diagnostic tests listed below will be scheduled by this date; May: All assessments, diagnostic tests, including health and wellness visits will be completed by this date; Vaccination Requirements: If you haven't already done so, please consider obtaining the Hepatitis B vaccine series. We offer the vaccine at the [facility] on the ground floor. You may also receive the vaccination series at your local health department. You may also speak with your Primary Care Physician or Canopy Stringer. If you choose to have procedures completed outside of the [facility] (i.e. [id number]), it is your responsibility to provide us with your testing schedule, so we may request the results. Failure to complete required scheduling and testing in a timely manner may result in the early closure of your candidacy. If your evaluation is closed due to these requirements not being met, you will be unable to be referred again for six (6) months. Once all of the required testing listed above has been completed, I will contact you regarding a potential date that your candidacy will be presented to the Patient Selection Committee. A final determination of candidacy will be made by our Patient Selection Committee. Please do not hesitate to give me a call with any additional questions or concerns. Have a great day, Kip Dinero RN, BSN, Pre-Burner Tender [facility] [address] [place] [address], [address] [place] [address] P: [phone]; F: [phone]; Pre-Kidney Transplant Care Team Physician: Dr. Aj Davies MD; Pre-Transplant Nurse Coordinator: GONZALES Shin (P: [phone]) Patient Accounting Manager Assistant Controller: Elisabeth Lopez [phone] (A, B, I, J, K, L, W, X, Y, Z). documented in this encounter [facility] 02-28-2023 Note HNO ID: [id number] Author: Dayna Ludwig RN Service: ? Author Type: Registered Nurse Type: Progress Notes Filed: 02/28/2023 11:41 AM Note Text: ABO Verification prior to Listing: Akilah Crawford's ABO blood type has been verified using source documentation from samples: drawn on two separate occasions with different collection times submitted as separate samples The results of these samples are the same and indicate that the patient's ABO blood type is: A. Transplant Coordinators performing verification: Nicole Hogan RN Patient has been added to the [facility] waiting list. Dayna MIDDLETON, RN Pre-Burner Tender [facility] 01-10-2023 Note HNO ID: [id number] Author: Ryann Perez RPh Service: ? Author Type: Pharmacist Type: Progress Notes Filed: 01/10/2023 8:42 AM Note Text: I have reviewed the patient?s medication profile and there are no identified medication issues that would preclude transplant in this patient. Ryann Perez, [facility] 01-06-2023 Note HNO ID: [id number] Author: Tashi Crawford MD Service: ? 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 Current GFR 21%. Followed in [facility]. Patient has a history of nephrotic syndrome dating back to 2011. At that time patient had a flu like illness and about 10-14 days later, started feeling fatigued per patient, with edema, found to have elevated blood pressure, and then shortly after was found to have nephrotic syndrome, had a kidney biopsy which showed MPGN Type 1, then in 01/2014 had another kidney biopsy which was read as FSGS NOS. Multiple treatments in the past including CsA, MMF, TPE, acthar. Very good transplant candidate but high risk for recurrent disease given refractory FSGS prior to transplanation (assuming FSGS was primary). Tashi Crawford MD [facility] 12-02-2022 Note HNO ID: [id number] Author: RT Rut(R) Service: Radiology Author Type: Technologist Type: Progress Notes Filed: 12/02/2022 3:54 PM Note Text: Radiology Service Progress Note PATIENT NAME: Akilah Crawford DATE OF SERVICE: December 02, 2022 TIME: 3:54 PM PATIENT IDENTITY VERIFICATION COMPLETED USING TWO (2) IDENTIFIERS: Name and Date of confirmed by patient verbally. FALL SCREENING: Has the patient had 2 falls in the last year or 1 fall with injury or currently using an Ambulatory Assistive Device (Walker, Cane, Wheelchair, Crutches, etc.)? No PATIENT GENDER DATA: Male PATIENT RELEVANT IMPLANT DATA REVIEWED: Not Applicable RADIOLOGY DEPARTMENT: General X-ray: Exam(s) Completed: Chest X-Ray PERIPHERAL IV DATA: Not applicable SIGNED BY: RT Rut(R) December 02, 2022 3:54 PM [facility] 12-02-2022 Note HNO ID: [id number] Author: RT Brian(R) Service: Radiology Author Type: Technologist Type: Progress Notes Filed: 12/02/2022 3:17 PM Note Text: Radiology Service Progress Note PATIENT NAME: Akilah Crawford DATE OF SERVICE: December 02, 2022 TIME: 3:17 PM PATIENT IDENTITY VERIFICATION COMPLETED USING TWO (2) IDENTIFIERS: Name and Date of confirmed by patient verbally and Name and Date of confirmed by identification band. FALL SCREENING: Has the patient had 2 falls in the last year or 1 fall with injury or currently using an Ambulatory Assistive Device (Walker, Cane, Wheelchair, Crutches, etc.)? No PATIENT GENDER DATA: Male PATIENT RELEVANT IMPLANT DATA REVIEWED: Yes RADIOLOGY DEPARTMENT: CT; Exam(s) Completed: Abdomen/Pelvis PERIPHERAL IV DATA: Not applicable SIGNED BY: RT Brian(R) December 02, 2022 3:17 PM [facility] 12-02-2022 Note HNO ID: [id number] Author: Tashi Crawford MD Service: ? Author Type: Physician Type: Progress Notes Filed: 12/03/2022 9:42 AM Note Text: [facility] Transplant Evaluation CC: Consultation for Kidney transplant evaluation. Referred by: Ayesha Griffin ([place]) [address] [address] I will communicate with the referring provider by letter and/or shared electronic medical record. 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 Current GFR 21%. Denies uremic symptoms. Per previous notes: Patient has a history of nephrotic syndrome dating back to 2011. 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 HIV, Hepatitis and complements were unremarkable. Also had an unremarkable renal US at that time. Then in 01/2014 had another kidney biopsy which was read as FSGS NOS, with negative immunofluorescence. Patient has been resistant to steroids. He was started on Cellcept in May 2013 that was discontinued in December 2014 due to lack of response. He had seizure with tacrolimus that was therefore discontinued. He had 13 plasmapheresis treatment in October 2015 without much response. Also tried gluten-free diet for one month without improvement in proteinuria. Seen by our PEDS team during this time including Janes Maldonado ,and Candi. Patient presents ambulatory without the need for assisted devices. 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 Other significant history includes: Vitamin d deficiency HTN Migraines Seizure, isolated event possible related to Tacrolimus GERD without esophagitis Hypercholesteremia Cardiovascular Disease: N/A Peripheral Arterial Disease: (TIA non-embolic, CVA non-embolic, amputation, carotid artery stenosis, abnormal PVRs, claudication history, decreased pulses, etc.):No Stroke: NO Claudication: NO Carotid Artery Stenosis: NO Hypercoagulable (history of DVT/PE, miscarriages, prior use of anticoagulation, etc.):No Malignancy (including skin cancer): No DM: No Prior transplant: No CKD: Yes: Cause of CKD: FSGS Advanced CKD, not on dialysis, current GFR: 21 Living Donors: Yes Residual UO: WNL Pathology: Renal Biopsy - 01/05/2014 Kidney, biopsy Focal segmental glomerulosclerosis, 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 Light microscopy shows 11 glomeruli; 5 are unremarkable and 6 have focal segmental glomerulosclerosis, 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 Tubulointerstitial atrophy, fibrosis and inflammation are minimal. Vessels are unremarkable. PAS, Martinez and trichrome stains highlight cells, matrix and basement membranes. Immunofluorescence (7 glomeruli) is negative for IgG, IgA, IgM, kappa, lambda, C3c and C1q. Albumin shows generalized tissue fluorescence. Electron microscopy (4 glomeruli) reveals extensive epithelial foot process effacement, glomerulitis and no electron dense Deposits. Renal Biopsy - 07/17/2012 Type 1 membranoproliferative glomerulonephritis Light microscopy shows 8 hypercellular glomeruli with increased mesangial matrix and segmentally thickened PAS-positive capillary knutson. Tubules, interstitium and vessels are normal. PAS, Martinez and trichrome stains highlight basement membranes, matrix and cells. Immunofluorescence (4 glomeruli) reveals segmental capillary wall and mesangial IgM, C3c, C1q,kappa and lambda of moderate intensity. IgG and IgA are negative. Albumin has generalized tissue fluorescence. Electron microscopy (4 glomeruli) shows large subendothelial electron dense deposits without substructure, intracapillary leukocytes and increased mesangial matrix. PAST MEDICAL HISTORY Diagnosis Date Cramping of hands 11/12/2012 resolved. Hypertension Membranoproliferative glomerulonephritis, type 1 with nephrosis Migraine 06/11/2011 Nephrotic syndrome 10/26/2012 Pneumonia Seasonal allergies Seizure (HCC) Single, possibly related to Tacrolimus PAST SURGICAL HISTORY Procedure Laterality Date CIRCUMCISION KIDNEY BIOPSY Jul 2012 TONSILLECTOMY AND ADENOIDECTOMY Current Outpatient Medications Medication Sig INV HP ACTHAR 80 UNITS/ML 400 unit/5 mL gel INJECTION GEL (IRB 18-356) Inject 0.5 mL subcutaneously two times a week. fluticasone (FLONASE) 50 mcg/actuation nasal spray Use 2 Sprays in each nostril once daily. Rinse mouth after use. rosuvastatin (CRESTOR) 20 mg tablet Take 1 tablet by mouth daily at bedtime. famotidine (PEPCID) 20 mg tablet Take 1 tablet by mouth at bedtime as needed. valsartan (DIOVAN) 80 mg tablet Take 1 tablet by mouth once daily. cholecalciferol (more content not included)... [facility] 12-02-2022 Note HNO ID: [id number] Author: Korey Hui MD Service: ? Author Type: Physician Type: Progress Notes Filed: 12/04/2022 2:24 PM Note Text: [facility] Transplant Evaluation CC: Consultation for Kidney transplant evaluation. Referred by: Ayesha Griffin ([facility]) [address] [address] I will communicate with the referring provider by letter and/or shared electronic medical record. 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 Current GFR 21%. Denies uremic symptoms. Per previous notes: Patient has a history of nephrotic syndrome dating back to 2011. 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 HIV, Hepatitis and complements were unremarkable. Also had an unremarkable renal US at that time. Then in 01/2014 had another kidney biopsy which was read as FSGS NOS, with negative immunofluorescence. Patient has been resistant to steroids. He was started on Cellcept in May 2013 that was discontinued in December 2014 due to lack of response. He had seizure with tacrolimus that was therefore discontinued. He had 13 plasmapheresis treatment in October 2015 without much response. Also tried gluten-free diet for one month without improvement in proteinuria. Seen by our PEDS team during this time including Janes Maldonado ,and Candi. Patient presents ambulatory without the need for assisted devices. 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 No Mi or stroke Had kidney disease when he was 10 Have LD Supportive parents Not on blood thinner GFR 21 Makes urine BP 155/106 (BP Site: Left Arm, BP Position: Sitting, BP Cuff Size: Regular Adult) Pulse 87 Temp 36.5 ?C (97.7 ?F) (Temporal) Ht 172.7 cm (5' 8 ) Wt 54.5 kg (120 lb 1.6 oz) SpO2 99% BMI 18.26 kg/m? Other significant history includes: Vitamin d deficiency HTN Migraines Seizure, isolated event possible related to Tacrolimus GERD without esophagitis Hypercholesteremia Cardiovascular Disease: N/A Peripheral Arterial Disease: (TIA non-embolic, CVA non-embolic, amputation, carotid artery stenosis, abnormal PVRs, claudication history, decreased pulses, etc.):No Stroke: NO Claudication: NO Carotid Artery Stenosis: NO Hypercoagulable (history of DVT/PE, miscarriages, prior use of anticoagulation, etc.):No Malignancy (including skin cancer): No DM: No Prior transplant: No CKD: Yes: Cause of CKD: FSGS Advanced CKD, not on dialysis, current GFR: 21 Living Donors: Yes Residual UO: WNL Pathology: Renal Biopsy - 01/05/2014 Kidney, biopsy Focal segmental glomerulosclerosis, 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 Light microscopy shows 11 glomeruli; 5 are unremarkable and 6 have focal segmental glomerulosclerosis, 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 Tubulointerstitial atrophy, fibrosis and inflammation are minimal. Vessels are unremarkable. PAS, Martinez and trichrome stains highlight cells, matrix and basement membranes. Immunofluorescence (7 glomeruli) is negative for IgG, IgA, IgM, kappa, lambda, C3c and C1q. Albumin shows generalized tissue fluorescence. Electron microscopy (4 glomeruli) reveals extensive epithelial foot process effacement, glomerulitis and no electron dense Deposits. Renal Biopsy - 07/17/2012 Type 1 membranoproliferative glomerulonephritis Light microscopy shows 8 hypercellular glomeruli with increased mesangial matrix and segmentally thickened PAS-positive capillary knutson. Tubules, interstitium and vessels are normal. PAS, Martinez and trichrome stains highlight basement membranes, matrix and cells. Immunofluorescence (4 glomeruli) reveals segmental capillary wall and mesangial IgM, C3c, C1q,kappa and lambda of moderate intensity. IgG and IgA are negative. Albumin has generalized tissue fluorescence. Electron microscopy (4 glomeruli) shows large subendothelial electron dense deposits without substructure, intracapillary leukocytes and increased mesangial matrix. PAST MEDICAL HISTORY Diagnosis Date Cramping of hands 11/12/2012 resolved. Hypertension Membranoproliferative glomerulonephritis, type 1 with nephrosis Migraine 06/11/2011 Nephrotic syndrome 10/26/2012 Pneumonia Seasonal allergies Seizure (HCC) Single, possibly related to Tacrolimus PAST SURGICAL HISTORY Procedure Laterality Date CIRCUMCISION KIDNEY BIOPSY Jul 2012 TONSILLECTOMY AND ADENOIDECTOMY Current Outpatient Medications Medication Sig INV HP ACTHAR 80 UNITS/ML 400 unit/5 mL gel INJECTION GEL (IRB 18-356) Inject 0.5 mL subcutaneously two times a week. fluticasone (FLONASE) 50 mcg (more content not included)... [facility] 12-02-2022 Note HNO ID: [id number] Author: TIFFANY Liao Service: ? Author Type: [employer] Rolls Type: Progress Notes Filed: 12/07/2022 12:29 PM Note Text: PSYCHOSOCIAL EVALUATION FOR KIDNEY TRANSPLANT (Assessment Via Telephone) Social Supports: Pt has support from his mother and father. Financial Concerns: MMO Compliance: Pt is not dialysis dependent at this time. Pt reports compliance with taken all medication as prescribed. Mental Health: No mental health concerns at this time. Substance Use: No current concerns regarding ETOH abuse, street drug use or tobacco use. SIPAT: 9 At this time, pt is a suitable psychosocial candidate. REFERRAL: Akilah Crawford was referred to Social Work for a psychosocial evaluation to establish if he would be a suitable candidate to receive a kidney transplant. Pt is not dialysis dependent at this time. DIALYSIS START DATE: N/A This social work psychosocial evaluation was completed with Akilah Crawford via telephone on December 02, 2022. Pt's parents Ana and Valerio was on the call. Pt was at at the time of this assessment. Race/Gender: White / Male [place] Citizen: Yes IDENTIFYING INFORMATION/LIVING SITUATION Akilah Crawford resides at [address] [address]. This home [place] about 1[place] 5min (56 miles) [place] from . Pt has lived in this 2 story home for the past 3yrs.. Pt denies any architectural barriers in the home. Pt reports he is independent with all ADL's, he has a drivers license and a vehicle. Pt denies receiving any home health care or home health aide services at this time. Others in household are: Pt's mother and father. 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 Ana is independent with all ADL's, she has a drivers license and a vehicle. 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 Valerio is independent with all ADL's, he has a drivers licenses and a vehicle. There are 3 licensed drivers in the home and 3 working vehicles. Caregiver responsibilities: None Pets in the home: 1 dog - SW reviewed precautions to take post transplant regarding animal care. Pt verbalized understanding. TRANSPLANT LODGING PLANS FOR PATIENTS WHO LIVE 2.5 OR MORE HOURS AWAY FROM [facility]: Do you have the financial means to stay in the area for four weeks or more post-transplant? N/A COMPREHENSION OF MEDICAL SITUATION Akilah Crawford reports that his kidney disease is due to unknown reasons. Akilah Crawford was able to recall information that was presented to him during the kidney transplant educational class. Akilah Crawford has basic knowledge of the transplant process, the risks of transplant, and transplant medications. Missed doctor appointments: Pt currently has a No Show rate of 1% (1 of 119.) Missed/shortened/rescheduled dialysis appointments: N/A Knowledge of medications: Pt was able to tell SW the name and purpose of his medication. Medication Compliance: Pt stated he takes all medication as prescribed and he utilizes a pill box organizer that he arranges once a week. Have you ever stopped taking any medication because you lost your insurance you could not afford it? Denies Have you stopped taking medication because you felt you didn't need it or because of side-effects? Yes, pt stated he stopped taken his Cyclosporine because it made him nauseous. Pt stated this is the only incident where he stopped taken medication. SW discussed the importance of medication compliance pre and post transplant and possible outcomes of non-compliance. SW discussed the importance of the pt informing the transplant team of any medication side effects post transplant. Pt verbalized understanding Do you have any moral, baptism, or ethical views against transplants or blood transfusions: No Have you ever been transplanted, evaluated, or listed at another center: Pt has a kidney transplant evaluation at [facility] in January 2023. Potential donor: Possibly family members. SUBSTANCE USE/ABUSE Alcohol: Pt stated he hasn't drank alcohol in the past 2yrs.. Pt denies any past alcohol abuse / over use. Tobacco: Pt denies ever using. Exposure to second hand smoke: No Illegal substances: Pt denies ever using. Over the Counter Medications: Vitamin D AND Calcium Opioids/Controlled Substances: None CAGE Questionnaire Have you ever felt you should cut down on your drinking? No Have people annoyed you by criticizing your drinking? No Have you ever felt bad or guilty about your drinking? No Have you ever had a drink first thing in the morning to steady your nerves or to get rid of a hangover [place] No LEGAL ENCOUNTERS Currently on probation or parole: No Past or current warrants for arrest: No Substance related legal problems: No Valid drivers license: Yes History of any legal issues not previously (more content not included)... [facility] 12-02-2022 Note HNO ID: [id number] Author: Ashley Ludwig RD Service: ? Author Type: Registered Dietitian Type: Progress Notes Filed: 12/02/2022 10:11 AM Note Text: Nutrition Therapy Initial Assessment Nutrition Diagnosis: Behavioral-Environmental: Food and nutrition related knowledge deficit, related to, lack of prior exposure to information , as evidenced by client has no prior knowledge of need for food and nutrition - related information. RECOMMENDED MALNUTRITION DIAGNOSIS: NO MALNUTRITION IDENTIFIED NUTRITION CARE PLAN Nutrition Intervention 12/02/2022: Modify type and amount of food at meals and snacks 1. Limit sodium to 2000 mg per day or less -avoid salting foods are using slat when cooking -try to use salt free blends, other herbs and spices for flavor -avoid restaurants and fast food -try to refer to food labels on packaged, processed foods for sodium content (aim for <300 mg per serving) 2. Aim for 44 g protein daily (0.8g/kg) -refer to handout provided -consider limiting animal protein to 1 meal daily, no more than the size of a deck of cards -incorporate plant based protein, dairy, eggs for lower protein options at other meals 3. Try to follow Healthy plate method at meal times -1/4 plate lean protein, 1/4 plate complex carbohydrates, 1/2 plate non starchy vegetables 4. Continue to limit sources of potassium and phosphorous -potassium -limit phosphorous to 5. Increase activity as tolerated. Nutrition Pre-Transplant Assessment Care plan has been outlined and Nutrition Concerns: BMI: 18.26. Patient reports no weight changes and normal appetite. Weight has been stable per Epic recorded weights. Patient is meeting protein needs and patient states he makes sure he eats his protein foods. Nutrition Monitoring AND Evaluation: po, weight status, and adherence to above recommendations Need for Follow up: PRN Patient presents for initial nutrition consult for kidney transplant evaluation. Patient is here today with his parents. PMHx significant for FSGS, HTN, and GERD. No recent labs reported. Patient reports no weight changes or GI concerns. Patient reports normal appetite. Diet recall reveals patient is consuming 2 meals and 2 snacks daily. Diet appears adequate in protein, but low in fruits and vegetables. Patient and family had no questions or concerns at the visit. Fluids meeting recommendations. Patient reports no physical activity. Patient's symptoms are: None Diet History: Breakfast - none Snack - none Lunch - Burger with fries OR quesadilla OR grilled chicken Snack - banana, applesauce Dinner - grilled chicken (3-4oz) with plain noodles or brown rice OR chicken noodle soup or lasagna soup Snack - cereal; wheat crackers. 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 Resting Metabolic Rate: 1505 Malnutrition Screening Significant unintentional weight loss? No Eating less than 75% of usual intake for more than 2 weeks? No Potential Signs of Inflammation: no identifiable sources Education Materials Provided: Healthy Lunch/Dinner Plate, High Protein Foods, Your Sodium-Controlled Diet, and Renal Diet Basics READINESS TO LEARN Cognitive ability: Alert and oriented Motivation to learn: Interested Family support: Unable to assess - Family not present Instruction provided to: Patient Patient learns best by: Multiple Methods Factors affecting learning: None Physical limitations affecting learning: None Referred/Supervised by: Sheeba/Guero PORTILLO Billing Type: Initial Assess/15 min 2 units SIGNATURE: Ashley Ludwig RD PATIENT NAME: Akilah Franco Yvette DATE: December 02, 2022 TIME: 9:37 AM PAGER: [facility] 12-02-2022 Note Education (DTBAMN) YVETTEAKILAH Franco ([id number]) 2000 M Date Time Provider Department 12/02/22 9:30 AM ASHLEY LUDWIGMN Reason for Visit: Patient Education [91] Nutrition Assessment [1591] Primary Visit Diagnosis:Awaiting organ transplant [Z76.82] Other Visit Diagnoses:Dietary counseling and surveillance [Z71.3] FSGS (focal segmental glomerulosclerosis) [N05.1] During your visit today, we recorded the following information about you: Weight Height 54.4 kg 1.72 m Allergies As of Date: 12/02/2022 Noted Allergy Reaction NUTMEG OIL (MYRISTICA SEED OIL) 02/26/2019 7 - Swelling PECAN NUT 02/26/2019 7 - Swelling SEASONAL ALLERGIES 06/11/2011 14 - Other: See Comments Comments: Year-round seasonal allergies Date Reviewed: 12/02/2022 Reviewed by: Mai Grey MA - Fully Assessed Prescriptions as of 12/02/2022 - INV HP ACTHAR 80 UNITS/ML 400 unit/5 mL gel INJECTION GEL (IRB 18-356) Inject 0.5 mL subcutaneously two times a week. - fluticasone (FLONASE) 50 mcg/actuation nasal spray Use 2 Sprays in each nostril once daily. Rinse mouth after use. - rosuvastatin (CRESTOR) 20 mg tablet Take 1 tablet by mouth daily at bedtime. - famotidine (PEPCID) 20 mg tablet Take 1 tablet by mouth at bedtime as needed. - valsartan (DIOVAN) 80 mg tablet Take 1 tablet by mouth once daily. - cholecalciferol (VITAMIN D3) 2,000 unit tablet Take 3 tablets by mouth once daily. Disposition: Return if symptoms worsen or fail to improve. Follow-up and Disposition History for Encounter Date Provider Department Center 12/02/2022 [id number], LARA [facility] Encounter Status:Closed by ASHLEY LUDWIG on 12/02/22 [facility] 11-25-2022 Note HNO ID: [id number] Author: Elen Khan RN Service: ? Author Type: Registered Nurse Type: Progress Notes Filed: 11/25/2022 8:58 AM Note Text: PRE-TRANSPLANT PATIENT EDUCATION NOTE Type of Transplant: Kidney Informed Consent for Evaluation signed: No Multiple Listing Form signed: No READINESS TO LEARN: Cognitive Ability: Alert and oriented Motivation to Learn: Interested Family Support: High - Very involved in pt care Instruction Provided to: Patient and Father Patient Learns Best by: Multiple Methods Factors Affecting Learning: None Physical Limitations Affecting Learning: None LEARNING RESPONSE: Diagnosis: CKD Education Topics/Teaching Points: -Discussed living donor evaluation and approval process. -Discussed the evaluation and listing process. -Discussed the different types of donors (KDPI scoring, DCD, High Risk). -Explained EPTS scoring and how it is calculated. -Explained the surgical procedure and potential complications, surgeons, hospital stay at the time of transplant. -Explained lifetime immunosuppression therapy and frequency of blood draws/labs post-op and post-op course of treatment. -Reviewed National and [facility] outcomes from the most recent [facility] center-specific report; a copy of the program summary was given to the patient. -Explained that if the transplant is not performed at a Medicare-approved transplant center it could affect the ability to have immunosuppressive medications paid under Medicare Part B. Supplemental Material: -Pre-Transplant Patient Education Folder -UNOS: Questions AND Answers for Transplant Candidates about Multiple Listing and Waiting Time Transfer -[facility]OS: Questions AND Answers for Transplant Candidates about Kidney Allocation Policy -Directions to access [facility] data through the [facility] website. -Informed Consent for Transplant Program Participation patient education packet -National Kidney Registry pamphlet -Covid-19 Vaccination for Transplant Candidates Method of Instruction: Group class instruction Verbal instruction Computer Patient/Family Response: Pt denied having any questions Follow-Up Plan: Contact information given. Referral/Recommendation: None Elen Khan RN Pre-Burner Tender [facility] 10-17-2022 Note HNO ID: [id number] Author: Elen Khan RN Service: ? Author Type: Registered Nurse Type: Progress Notes Filed: 10/18/2022 12:41 PM Note Text: Hx: Seizure ( due to Tacrolimus) -? Medication compliance. Stopped taking Cyclosporine on own is documented New Referral Referring Physician Ayesha Griffin Organ Type kidney ESRD No. Cause: HTN 07/15 Kidney, biopsy - Type 1 membranoproliferative glomerulonephritis. 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 No eGFR 20% (05-07-22 from 24hr urine, 21% serum on same day)- Discussed with Dr Weinberg 24% ( 10-14-22) Diabetes No Smoking Never smoked Current BMI 18.2 Previous Transplant no Date of Last Transplant N/a Currently Listed? no Willing to accept blood transfusion? yes Potential Living Donor? yes Full Transplant Evaluation? Yes Malnutrition Screening Tool (MST) 1. Have you lost weight without trying? No- 0 Weight loss score: 0 2. Have you been eating poorly in the last week because of a decreased appetite? No- 0 Appetite score: 0 Total MST score (weight loss + appetite scores): 0 Score of 2 or more = referral to registered dietitian for an individual appointment Elen Khan RN Pre-Kidney AND Pancreas Burner Tender [facility] documented in this encounter [facility] Summary Purpose Family History No Family History Records FoundNo Family History Records Found Advance Directives No Advanced Directives Records FoundNo Advanced Directives Records Found Additional Source Comments Reason for Visit (unrecogniz ed section and content) Care Teams (unrecognized sec tion and content) (unrecognized sect ion and content) No Status Records FoundNo Status Records Found INFORMATION SOURCE (unrecogn ized section and content) DATE CREATED AUTHOR AUTHOR'S ZEKESARAH RHONDA 08/01/2023 [facility] FOR RECORDS PERTAINING TO PATIENTS WHO ARE OR HAVE BEEN ENROLLED IN A CHEMICAL DEPENDENCY/SUBSTANCEABUSE PROGRAM, SOME INFORMATION MAY BE OMITTED. This clinical summary was aggregated from multiple sources. Caution should be exercised in using it in the provision of clinical care. This summary normalizes information from multiple sources, and as a consequence, information in this document may materially change the coding, format and clinical context of patient data. In addition, data may be omitted in some cases. CLINICAL DECISIONS SHOULD BE BASED ON THE PRIMARY CLINICAL RECORDS. [facility] [employer] [facility]. provides no warranty or guarantee of the accuracy or completeness of information in this document.
[2023-08-19 12:52] LABS: Hematocrit 29.4 % (40-54); Mean Corpuscular Hgb 29.9 pg (27.0-32.0); Mean Platelet Vol. 9.3 fl (6.2-12.0); Platelet Count 193 K/mm3 (150-450); RBC Distribution Width CV 13.1 % (11.6-14.6); RBC Distribution Width SD 41.8 fl (35.1-43.9); Red Blood Count 3.34 M/mm3 (4.6-6.2); White Blood Count 6.5 K/mm3 (4.4-11.0)
[2023-08-19 14:43] LABS: Albumin, Serum 1.8 g/dL (3.2-5.0); BUN 52 mg/dL (7-18); BUN/Creat Ratio 11.1 RATIO (10-20); Calcium,Total 8.1 mg/dL (8.5-10.1); Chloride 114 mmol/L (98-107); Creatinine, Serum 4.68 mg/dL (0.70-1.30); EST Glomerular Filtration Rate 16 mL/min (>60); Est Glom Filt Rate - Afr Amer 20 mL/min (>60); Glucose 87 mg/dL (74-106); Phosphorus 5.2 mg/dL (2.5-4.9); Potassium 4.1 mmol/L (3.5-5.1); Sodium Level 141 mmol/L (136-145)
== END | disposition home or self-care (01) ==
LOC: POLAB3 12:28
PROVIDERS: PCP Physician Assistant; Visit Provider Internal Medicine Nephrology
DX: N18.4 Chronic kidney disease, stage 4 (severe) (principal); D50.9 Iron deficiency anemia, unspecified
CPT/HCPCS: 36415; 80069; 85027

== ENCOUNTER → 2023-09-18 | Outpatient (CLI) | payer OTHER, SELFPAY ==
[2023-09-18 16:14] LABS: PTHIN 319.4 pg/mL (18.4-80.1)
[2023-09-18 17:25] LABS: Albumin, Serum 2.1 g/dL (3.2-5.0); BUN 55 mg/dL (7-18); BUN/Creat Ratio 10.9 RATIO (10-20); Calcium,Total 8.1 mg/dL (8.5-10.1); Chloride 118 mmol/L (98-107); Creatinine, Serum 5.04 mg/dL (0.70-1.30); EST Glomerular Filtration Rate 15 mL/min (>60); Est Glom Filt Rate - Afr Amer 18 mL/min (>60); Glucose 99 mg/dL (74-106); Phosphorus 4.8 mg/dL (2.5-4.9); Potassium 4.9 mmol/L (3.5-5.1); Sodium Level 142 mmol/L (136-145)
== END | disposition home or self-care (01) ==
LOC: POLAB3 15:01
PROVIDERS: PCP Physician Assistant; Visit Provider Internal Medicine Nephrology
DX: N18.4 Chronic kidney disease, stage 4 (severe) (principal)
CPT/HCPCS: 36415; 80069; 83970

== ENCOUNTER → 2023-10-13 | Outpatient (CLI) | payer OTHER, SELFPAY ==
[2023-10-13 12:30] LABS: Hematocrit 28.1 % (40-54); Hemoglobin 9.7 g/dL (13.0-16.5); Mean Corp Hgb Conc 34.5 g/dL (32-36); Mean Corpuscular Hgb 30.3 pg (27.0-32.0); Mean Corpuscular Volume 87.8 fL (80-94); Mean Platelet Vol. 9.5 fl (6.2-12.0); Platelet Count 212 K/mm3 (150-450); RBC Distribution Width CV 12.6 % (11.6-14.6); White Blood Count 6.2 K/mm3 (4.4-11.0)
[2023-10-13 12:53] LABS: PTHIN 350.5 pg/mL (18.4-80.1)
[2023-10-13 12:59] LABS: Vitamin D,25 Hydroxy 19.8 ng/mL
--- OUTSIDE RECORDS SUMMARY | 2023-10-13 13:09 | XMS RPT_ITS | CCD ---
Author Name Unknown Address [address] [place] [address] Organization [facility] Care Team Providers Care Director Zone Name Role Phone Mayra Kay Primary Care Provider AJ DAVIES Attending Unavailable BRAVO, MRobby MARY Primary Care Unavailable MARLEN ROSAS Referring Unavailable KOREY HUI Referring Unavailable BRAVO, M TRYON Primary Care Unavailable POGGIO, EDISON D Referring Unavailable BRAVO, M TRYON Primary Care Unavailable BRAVO, M TRYON Primary Care Unavailable NEPTALI GRIFFININE Referring Unavailable POGGIO, EDISON D Referring Unavailable BRAVO, M TRYON Primary Care Unavailable POGGIO, EDISON D Referring Unavailable BRAVO, M TRYON Primary Care Unavailable ASHLEY LUDWIG Attending Unavailable BRAVO, M MARY Primary Care Unavailable NEPTALI GRIFFININE Referring Unavailable BRAVO, M MARY Primary Care Unavailable POGGIO, EDISON D Referring Unavailable KOREY HUI Referring Unavailable BRAVO, M MARY Primary Care Unavailable KOREY HUI Referring Unavailable BRAVO, M MARY Primary Care Unavailable POGGIO, EDISON D Referring Unavailable BRAVO, M TRYON Primary Care Unavailable BRAVO, [facility] Primary Care Unavailable POGGIO, EDISON D Referring Unavailable BRAVO, M TRYON Primary Care Unavailable TASHI CRAWFORD Referring Unavailable TASHI CRAWFORD Referring Unavailable BRAVO, M TRYON Primary Care Unavailable POGGIO, EDISON D Referring Unavailable BRAVO, M TRYON Primary Care Unavailable TASHI CRAWFORD J Referring Unavailable BRAVO, M TRYON Primary Care Unavailable TASHI CRAWFORD Referring Unavailable BRAVO, M TRYON Primary Care Unavailable KOREY HUI Referring Unavailable BRAVO, M TRYON Primary Care Unavailable KOREY HUI Referring Unavailable BRAVO, M TRYON Primary Care Unavailable KOREY HUI Referring Unavailable Juan Carlos BRAVO Primary Care Unavailable Allergies Allergy Classification Reported Allergen(s) Allergy Type Date of Onset Reaction(s) Facility (1 source) Nutmeg oil Propensity to adverse reactions to drug 9 Swelling [facility] (1 source) pecan allergenic extract Drug Allergy 9 Swelling [facility] (1 source) *Seasonal Propensity to adverse reactions to substance 1 [facility] (1 source) Nutmeg oil; Translations: [NUTMEG OIL (MYRISTICA SEED OIL)] Propensity to adverse reactions to drug (disorder) 9 [facility] (1 source) pecan pollen extract; Translations: [PECAN NUT] Drug Allergy 9 [facility] (1 source) Seasonal allergy; Translations: [SEASONAL ALLERGIES] Propensity to adverse reactions (disorder) 1 [facility] Medications Current Medications Medication Drug Class(es) [...] 172.7 cm THERESE Serrano MD Work Phone: [facility] 03-27-2023 10:27-0400 Body mass index (BMI) [Ratio] 17.91 kg/m2 THERESE Serrano MD Work Phone: [facility] 03-27-2023 10:27-0400 Body temperature 97.2 [degF] THERESE Serrano MD Work Phone: [facility] 03-27-2023 10:27-0400 Body weight 53.43 kg THERESE Serrano MD Work Phone: [facility] 03-27-2023 10:27-0400 Diastolic blood pressure 89 mm[Hg] THERESE Serrano MD Work Phone: [facility] 03-27-2023 10:27-0400 Heart rate 68 /min THERESE Serrano MD Work Phone: [facility] 03-27-2023 10:27-0400 Systolic blood pressure 133 mm[Hg] THERESE Serrano MD Work Phone: [facility] Encounters Encounter Date Encounter Type Care Provider Facility Start: 09-17-2023 End: 09-18-2023 ambulatory KOREY C WEE Facility:[facility] Start: 08-19-2023 End: 08-20-2023 ambulatory KOREY C WEE Facility:[facility] Start: 07-23-2023 End: 07-24-2023 ambulatory KOREY C WEE Facility:[facility] Start: 06-09-2023 End: 06-10-2023 ambulatory KOREY C WEE Facility:[facility] Start: 05-16-2023 End: 05-17-2023 ambulatory KOREY C WEE Facility:[facility] Start: 04-03-2023 End: 04-04-2023 ambulatory KOREY C WEE Facility:[facility] Start: 03-27-2023 ambulatory AJ DAVIES Facility: [facility] Start: 03-27-2023 Anes nerve muscle td n fascia&bursa forearm wrist AJ DAVIES Facility:[facility] Start: 03-27-2023 Encounter for other preprocedural examination AJ DAVIES Facility:[facility] Start: 03-27-2023 Encounter for preprocedural cardiovascular examination AJ DAVIES [facility] Start: 03-27-2023 End: 03-27-2023 Office outpatient new 60 minutes THERESE Dean MD Work Phone: [facility] Procedures Date Procedure Procedure Detail Performing Clinician Start: 03-27-2023 End: 03-27-2023 Antibody screen THERESE Serrano MD Work Phone: Plan of Treatment Date Care Activity Detail Author Start: 02-08-2048 Zoster vaccine hzv l faina for subcutaneous use ZOSTER (SHINGLES) VACCINE (1 of 2) [facility] Start: 04-04-2023 Influenza vaccination INFLUENZA VACC INE (#1) [facility] Start: 03-27-2023 End: 03-27-2024 CMV IGG AB [facility] Immunizations Immunization Date Immunization Notes Care Provider Fa cility 05-11-2021 influenza virus vaccine, unspecified formulation THERESE Serrano MD Work Phone: [facility] 03-27-1999 zoster vaccine, unspecified formulation THERESE Serrano MD Work Phone: [facility] Payers Date Payer Category Payer Unknown [id number] 2013 Unknown [id number] 1998 Unknown [id number] Social History Date Type Detail Facility Start: [facility]-24[facility] Start: 03-24-2023 Tobacco use and exposure Smokeless tobacco non-user [facility] Start: 03-27-2023 Alcohol intake Ex-drinker (finding) [facility] Start: 03-27-2023 History of Social function [facility] Start: 03-27-2023 Tobacco use panel [facility] Start: 03-24-2023 Alcohol Comment Last: 2020 [facility] Start: 2000 Sex Assigned At Not on file O [facility] Clinical Notes 10-17-2022 to 03-27-2023 Jaron Dinero RN - 03/27/2023 10:40 AM Brittany Dinero RN - 03/27/2023 10:40 AM Caridad Davies MD, MBBS - 03/27/2023 10:40 AM Brittany Dinero RN [...] Nursing Assessment: Akilah Crawford arrived to the [facility] pre transplant clinic with Mother (Ana Crawford). Education reviewed. Labs were drawn. The patient was evaluated by the pre-customer solutions coordinator, the high school social studies teacher and Dr. Aj Davies MD. All questions answered. New recipient Evaluation: Thank you for requesting a consultation on Akilah Crawford is a 23 y.o.male for a kidney transplant in [facility]. Below contains a detailed initial evaluation [...] infection and swelling. He started seeing a manipulative therapy specialist around that time. He has a known history of proteinuria; a known history of hematuria. His kidney function continued to decline, since 2013. He currently has some symptoms of uremia- nausea, some weight loss, less appetite, fatigue, daytime somnolence, no itching. He has previously been evaluated for kidney transplant at [facility], comes to [facility] for evaluation to be enrolled in [place] trial. Other notable medical history: 1. HTN [...] Procedure Laterality Date RENAL BIOPSY 01/05/2014 Biopsy, [facility] (01/05/2014): FINAL DIAGNOSIS: Focal segmental glomerulosclerosis, [...] Access: none Labs and imaging reviewed in [facility] along with pre-customer solutions coordinator: Assessment and Plan: At this time, [...] transplant selection committee meeting for enrollment in [place] trial. If he is listed and no [...] evaluate Akilah Crawford Aj Davies MD, THERESE Social Director [facility] At this time, pt's evaluation was completed for today. Pt had the opportunity to meet with the Transplant Physician, and the Nurse Story Editor. Pt/Mother were provided an opportunity to ask [...] B vaccination series is available at the [facility] on the ground floor or their local health department. documented in this encounter [facility] 03-27-2023 Instructions Jaron Dinero RN - 03/27/2023 10:40 AM EDT Items Required for Completion Prior to Patient Selection Committee: Items to be completed today: Evaluation by a Transplant Bisque Kiln Placer/Transplant Surgeon; Lab Draw; Schedule the Social Work Appointment; It is the expectation of the [facility] that you will complete all [...] series. We offer the vaccine at the [facility] on the ground floor. You may also receive the vaccination series at your local health department. You may also speak with your Primary Care Physician or Bisque Kiln Placer. If you choose to have procedures completed outside of the [facility] (i.e. [id number]), it is your responsibility to provide us [...] a great day, Kip Dinero RN, BSN, Pre-Story Editor [facility] [address] [place] [address], [address] [place] [address] P: [phone]; F: [phone]; Pre-Kidney Transplant Care Team Physician: Dr. Aj Davies MD; Pre-Transplant Nurse Coordinator: GONZALES Shin (P: [phone]) Patient Ambulance Driver: Elisabeth Lopez [phone] (A, B, I, J, K, L, W, X, Y, Z). documented in this encounter [facility] 02-28-2023 Note HNO ID: [id number] Author: Dayna Ludwig RN Service: ? Author [...] the [facility] waiting list. Dayna MIDDLETON, RN Pre-Story Editor [facility] 01-10-2023 Note HNO ID: [id number] Author: Ryann Perez [facility] Service: ? Author Type: Pharmacist Type: Progress Notes Filed: 01/10/2023 8:42 AM Note Text: I have reviewed the patient?s medication profile and there are no identified medication issues that would preclude transplant in this patient. Ryann Perez [facility] 01-06-2023 Note HNO ID: [id number] Author: Tashi Crawford MD Service: ? 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 Current GFR 21%. Followed in [facility] Dr. Griffin. Patient has a history of [...] (assuming FSGS was primary). Tashi Crawford MD [facility] 12-02-2022 Note HNO ID: [id number] Author: RT Rut(R) Service: Radiology Author Type: [...] RT Rut(R) December 02, 2022 3:54 PM [facility] 12-02-2022 Note HNO ID: [id number] Author: RT Brian(R) Service: Radiology Author Type: [...] RT Brian(R) December 02, 2022 3:17 PM [facility] 12-02-2022 Note HNO ID: [id number] Author: Tashi Crawford MD Service: ? Author Type: Physician Type: Progress Notes Filed: 12/03/2022 9:42 AM Note Text: [facility] at [facility] Transplant Evaluation CC: Consultation for Kidney transplant evaluation. Referred by: Ayesha Griffin (Marilin) [address] [place] [phone] I will communicate with the referring provider [...] need for assisted devices. 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 Other significant history includes: Vitamin [...] once daily. cholecalciferol (more content not included)... [facility] 12-02-2022 Note HNO ID: [id number] Author: Korey Hui MD Service: ? Author Type: Physician Type: Progress Notes Filed: 12/04/2022 2:24 PM Note Text: [facility] Transplant Evaluation CC: Consultation for Kidney transplant evaluation. Referred by: Ayesha Griffin (Marilin) [address] [address] I will communicate with the referring provider [...] need for assisted devices. 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 No Mi or stroke Had [...] (FLONASE) 50 mcg (more content not included)... [facility] 12-02-2022 Note HNO ID: [id number] Author: TIFFANY Liao Service: ? Author Type: Retail Area Manager Type: Progress Notes Filed: 12/07/2022 12:29 PM [...] IDENTIFYING INFORMATION/LIVING SITUATION Akilah Crawford resides at [address] [place], [place] [id number]. 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 Ana is independent with all ADL's, she has a drivers license and a vehicle. 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 Valerio is independent with [...] LIVE 2.5 OR MORE HOURS AWAY FROM [facility]: Do you have the financial means [...] verbalized understanding Do you have any moral, religion, or ethical views against transplants or blood [...] to get rid of a hangover (eye medical claims processor)? No LEGAL ENCOUNTERS Currently on probation or parole: No Past or current warrants for arrest: No Substance related legal problems: No Valid drivers license: Yes History of any legal issues not previously (more content not included)... [facility] 12-02-2022 Note HNO ID: [id number] Author: Ashley Ludwig RD Service: ? Author [...] Physical limitations affecting learning: None Referred/Supervised by: Celso PORTILLO Billing Type: Initial Assess/15 min 2 units SIGNATURE: Ashley Ludwig RD PATIENT NAME: Akilah Joan Crawford DATE: December 02, 2022 TIME: 9:37 AM PAGER: [facility] 12-02-2022 Note Education (DTBAMN) AKILAH CRAWFORD ([id number]) 2000 M Date Time Provider Department 12/02/22 9:30 AM ASHLEY LUDWIG DTBAMN Reason for Visit: Patient Education [91] Nutrition [...] for Encounter Date Provider Department Center 12/02/2022 [id number], LARA [facility] Encounter Status:Closed by ASHLEY LUDWIG on 12/02/22 [facility] 11-25-2022 Note HNO ID: [id number] Author: Elen Khan RN Service: ? Author [...] about Kidney Allocation Policy -Directions to access [facility]'s data through the [facility] website. -Informed Consent for Transplant Program Participation patient education packet -National Kidney Registry pamphlet -Covid-19 Vaccination for Transplant Candidates Method of Instruction: Group class instruction Verbal instruction Computer Patient/Family Response: Pt denied having any questions Follow-Up Plan: Contact information given. Referral/Recommendation: None Elen Khan RN Pre-Story Editor [facility] 10-17-2022 Note HNO ID: [id number] Author: Elen Khan RN Service: ? Author [...] otherwise specified Dialysis Dependant? No eGFR 20% (22 from 24hr urine, 21% serum on same [...] appointment Elen Khan RN Pre-Kidney AND Pancreas Story Editor [facility] documented in this encounter [facility] Summary Purpose Family History No Family [...] section and content) DATE CREATED AUTHOR AUTHOR'S ORGANIZ ATION 10/01/2023 [facility] FOR RECORDS PERTAINING TO PATIENTS WHO [...] BE BASED ON THE PRIMARY CLINICAL RECORDS. [facility]. provides no warranty or guarantee of the accuracy or completeness of information in this document.
[2023-10-13 13:21] LABS: Albumin, Serum 2.1 g/dL (3.2-5.0); BUN 51 mg/dL (7-18); BUN/Creat Ratio 8.6 RATIO (10-20); Chloride 116 mmol/L (98-107); Creatinine, Serum 5.96 mg/dL (0.70-1.30); EST Glomerular Filtration Rate 12 mL/min (>60); Est Glom Filt Rate - Afr Amer 15 mL/min (>60); Glucose 89 mg/dL (74-106); Iron 71 ug/dL (65-175); Iron Binding Capacity,Total 183 ug/dL (250-450); Potassium 4.8 mmol/L (3.5-5.1); Sodium Level 141 mmol/L (136-145)
== END | disposition home or self-care (01) ==
LOC: LAB 11:36
PROVIDERS: PCP Physician Assistant; Referring Provider Internal Medicine Nephrology; Visit Provider Internal Medicine Nephrology
DX: N18.5 Chronic kidney disease, stage 5 (principal); E21.1 Secondary hyperparathyroidism, not elsewhere classified; E55.9 Vitamin D deficiency, unspecified; D63.8 Anemia in other chronic diseases classified elsewhere
CPT/HCPCS: 36415; 80069; 82306; 83540; 83550; 83970; 85027

== ENCOUNTER 2023-10-21 05:57 | Day surgery (SDC) | payer OTHER, SELFPAY ==
[2023-10-21] VITALS (12 sets, daily range): BP systolic 119–140; BP diastolic 76–94; PULSE 75–108; RESP 14–18; TEMP 36.1–36.8; O2SAT 96–100; BMI 19.4
[2023-10-21] MEDS: 0.9% Normal Saline (1000mL) 1,000 ML 15 ML IV (06:35)
--- NOTE | 2023-10-21 07:00 | HP.PCM_ITS ---
History and Physical Date of Admission: 10/21/23 Date of Service: 09/25/23 MR#: [id number] Acct: [id number] Name: AKILAH SPRAGUE Rep #: [id number] : 2000 Provider: Dr. Taye Gonzalez MD Age/Sex: 23/M Location: [facility] Status: Signed Intake Vital Signs 06/24/2315:04 09/25/2413:08 Height 5 ft 8 in 5 ft 8 in Weight: 123 lb BMI 18.7 BP 151/93 H Blood Pressure Location Rt brachial Position Sitting Respiration 18 Pulse 85 Pulse Source Monitor Temp 96.3 F L Temp Source Temporal Pulse Oximetry (%) 100 Oxygen Delivery Method room air Intake Visit Reasons: PERITONEAL DRAIN Chief Complaint: Peritoneal catheter placement Production Sound Mixer Required: No Accompanied by: Mother Is patient in pain?: No Allergies tacrolimus Allergy (Severe, Verified 09/25/23 15:13) seizure Medications corticotropin 80 unit/mL injection gel 80 unit IM DAILY 05/30/23 [History Confirmed 09/25/23] famotidine 20 mg tablet 20 mg PO DAILY 05/30/23 [History Confirmed 09/25/23] polysaccharide iron complex 150 mg iron capsule (Ferrex) 150 mg PO DAILY 05/30/23 [History Confirmed 09/25/23] rosuvastatin 20 mg tablet 20 mg PO DAILY 05/30/23 [History Confirmed 09/25/23] sevelamer carbonate 800 mg tablet 1,600 mg PO TID 05/30/23 [History Confirmed 09/25/23] sodium bicarbonate 650 mg tablet 650 mg PO DAILY 05/30/23 [History Confirmed 09/25/23] calcium carbonate 600 mg calcium (1,500 mg) tablet (Calcium) 600 mg PO DAILY 06/24/23 [History Confirmed 09/25/23] fluticasone propionate 50 mcg/actuation nasal spray,suspension (Allergy Relief (fluticasone)) 1 spray intranasal DAILY PRN 06/24/23 [History Confirmed 09/25/23] amlodipine 5 mg tablet 5 mg PO DAILY 09/25/23 [History Confirmed 09/25/23] calcium citrate 315 mg calcium-vitamin D3 6.25 mcg (250 unit) tablet 1 tab PO DAILY 09/25/23 [History Confirmed 09/25/23] valsartan 80 mg tablet 80 mg PO DAILY 09/25/23 [History Confirmed 09/25/23] [facility] Medical History (Updated 09/25/23 @ 17:[address] 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 He is referred from Dr. Parsons of nephrology. He shares that he was first diagnosed with kidney trouble in 2011 when he experienced nephrotic syndrome. He has ultimately been diagnosed with glomerulonephritis and experienced deteriorating renal function. He shares that his last visit with nephrology they are anticipating dialysis sometime in the next 3 months. He has not required dialysis to this point. He shares that he does have some fatigue but attributes this to his blood pressure medications rather than his renal dysfunction. He denies any difficulty with brain fog. He has no history of recurrent infections and specifically denies any history of diverticulitis or cholecystitis. 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 Patient's past surgical history includes prior kidney biopsy as well as port removal. This was previously used for plasmapheresis treating his kidney issues). Lastly patient confirms that he is on the list for living donor transplant and is certainly receptive to the idea of a kidney transplant. ROS General General: Yes fatigue; No weight change, appetite, colon cancer, breast cancer or weakness HEENT HEENT: No difficulty swallowing, eye injury, eye surgery, swollen glands or hoarseness Endo Endocrine: No thyroid disease, diabetes mellitus, thyroid cancer, Hair loss, heat intolerance or cold intolerance Skin Skin: No rash or changing moles Breast Breast: No left breast lump, right breast lump, nipple discharge, breast pain, abnormal mammogram, abnormal US or breast enlargement Musc Musculoskeletal: No back problems, arthritis, rheumatoid arthritis, gout or joint pain Cardio Cardiovascular: Yes high blood pressure; No murmur, pacemaker, heart disease, atrial fibrillation, heart attack, heart stent, palpitations, shortness of breat with exertion or chest pain Psych Psychiatric: Yes anxiety; No depression or hearing voices Resp Respiratory: No shortness of breath, No sleep apnea, No cough, No COPD, No asthma, No emphysema and No wheezing Gastro Gastrointestinal: No abdominal pain, Yes nausea or vomiting, No diarrhea, No constipation, No blood in stool, Yes acid reflux, Yes hemorrhoids, No ulcers, No gallbladder problem and No black,tarry stools Js Hematologic: No blood thinners, No blood disorders, No bleeding, Yes anemia and No blood clots Neuro Neurologic: No system reviewed and no additional complaints, except as documented, No as per HPI, No abnormal gait, No abnormal hearing, No abnormal movements, No abnormal speech, No behavioral changes, No burning sensations, No confusion, No convulsions, No disequilibrium, No dizziness, No localized weakness, No frequent falls, No headache(s), No lack of coordination, No loss of vision, No memory loss, No numbness, No other visual disturbances, No radicular pain, No restless legs, No sensory deficit, No syncope, No tingling, No tremor(s), No weakness and No other Exam Const General: cooperative and anxious Orientation: alert, awake and oriented x3 Resp Effort & Inspection: normal respiratory effort GI Other: Lower abdominal striae present. Slender, no scars, no herniation. Soft, nondistended, nontender with palpation x 4 quadrants. Assessment and Plan Assessment and Plan (1) Chronic kidney disease, stage 4 (severe): Status: Chronic Comment: This is a 23-year-old male with CKD 4 approaching ESRD status secondary to a chronic history of glomerulonephritis who is evaluated for possible peritoneal dialysis initiation. He appears informed and has no contraindications for proceeding with the procedure. Moreover, he appears to be an ideal candidate with his body habitus and his lifestyle?already leading him to extended periods of time around his house. I did discuss the details of the procedure and the concerns around infection/catheter dysfunction. Neither Mr. Sprague nor his mother have any further questions. We will look to set up a date for the catheter insertion today. I have briefed him that depending on our operative time we may need to admit him overnight to get him comfortable with the catheter function before discharge to home. Plan: Plan for peritoneal dialysis catheter insertion I have examined the patient the following changes are noted: Patient completed his staph eradication protocol and denies any new health updates. We reviewed that we would not plan for use of the catheter for 2 weeks postop. He and his family inquire about any lifting restrictions and I have advised no lifting greater than 15 pounds for those 2 weeks. Otherwise family is without questions. We will to see if he is feeling comfortable with the catheter postoperatively before determining his ultimate disposition. Will now proceed to the operating room for catheter placement.
[2023-10-21] MEDS: Cefazolin 2 GM in 0.9% Normal Saline (100mL Bag) 100 ML IV (07:33)
[2023-10-21] MEDS: Heparin Injection (Vial) 5,000 UNIT/ML VIAL 5000 UNIT ×2 (07:38→08:33)
[2023-10-21] MEDS: Bupivacaine Mpf 0.5% 30 ML VIAL (08:48)
--- NOTE | 2023-10-21 09:25 | PCM.OPRPT ---
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 Placement of a 62 cm double cuffed peritoneal dialysis catheter - attenuated omentum Surgeon: Taye Gonzalez contract administration specialist: Cristi Franz contract administration specialist: Edilson Barron Type of Anesthesia: General/Supplemental Anesthesiologist: Collins Bryan Specimen's removed: None Estimated Blood Loss (mL): 10 Description of Procedure: After preprocedurally marking patient's waistline and confirming consents, he was brought to the operating room where he was positioned supine on the operating room table. There he was administered preoperative antibiotics and underwent endotracheal intubation with anesthesia. His abdomen was prepped and draped in usual sterile fashion. Pubis was identified and the catheter was laid up on patient's abdominal wall to mimic in situ placement and plan for catheter placement. After this marking, patient's abdomen was entered via an optical entry in a right paramedian approach and his abdomen was insufflated. Laparoscopic visualization confirmed no inadvertent injury to the viscera deeply. A second trocar was then placed under laparoscopic guidance a handsbreadth inferior lateral from this index port site. Then a wheal of local anesthetic was raised at the catheter entrance site and a 2 cm transverse incision was made sharply. Blunt dissection carried this down to the anterior rectus sheath which was sharply nicked. The Veress needle with the sheath for the step trocar set up was placed into this opening and under laparoscopic guidance was used to dissect an approximately 6 cm tunnel inferior laterally until we then bluntly popped through the posterior rectus sheath and peritoneum. The needle was withdrawn leaving the sheath in place and I then attempted to place the obturator through the sheath. Unfortunately, this resulted in a tear of the sheath. In order to not lose our subcutaneous/intramuscular tunnel I requested a 035 guidewire to the room and placed this through patient's torn sheath as I retracted the gun sealing machine operator. I then threaded a 10 Turkish dilator sheath over this wire to dilate the tract. This still was not sufficiently dilated to accommodate our catheter so I then withdrew this sheath and placed the obturator for a standard 5 mm trocar over the wire and further dilated the tract. Lastly the trocar was placed through the tract and the catheter?previously straightened upon the introducer trocar was placed through the port into the pelvis. The catheter introducer trocar was then carefully withdrawn and the catheter tip deposited just posterior to the bladder. This trocar and the port were then fully withdrawn leaving the first cuff of the catheter between the rectus sheaths. The distal end of the catheter was trimmed and then attached to the tunneler device. Elevating the skin, the tunneler was used to deliver the distal end of the catheter to the planned exit site?thereby burying the second cuff and the tunneler was removed from the distal end of the catheter. The metal connection pieces were fitted about the end of the catheter and were tightened with pliers. A transfer set was attached and the catheter was tested by instilling 800 mL of saline into the pelvis. The this instillation showed the antegrade flow was unobstructed and uninhibited by the catheter's placement. Satisfied with this assessment, the saline bag that had been used to instill the fluid was placed upon the ground and the catheter was allowed to drain. All but 200 mL of the added saline peritoneal fluid were removed. Then the catheter was locked with 20 mL of heparinized saline as the transfer set was removed. Our patient's very attenuated omentum was located over the bowel and was grasped with our laparoscopic instrument. A maikel was made in the skin along the inferior lateral abdominal wall and a grainy needle was used to pexied the omentum to the abdominal wall using 2-0 Prolene suture. Pneumoperitoneum was evacuated and the port sites were closed with 4-0 Monocryl in a subcuticular fashion. Dermabond was applied to each port site. A small OpSite was split at 1 end and fitted about the exit site of the catheter. The remaining catheter components were coiled and placed atop an abdominal pad. They were held in place using a number of 3000 OpSite sheets and a Tegaderm. Patient was then awoken from anesthetic and taken to PACU for ongoing recovery. Grafts/Implants Used: [place] Double Cuffed 62cm Peritoneal Dialysis catheter Complications None Admit VTE Documentation VTE Mechan Device Prophylaxis: SCD's
--- NOTE | 2023-10-21 09:28 | DCINST_ITS ---
Discharge Instructions Diet Discharge Diet: No restrictions Activity Discharge Activity: May Not Drive (No driving while using narcotic pain medication) and May Shower (Please keep dressing dry) Ice area for (Minutes): 20 Lifting Restrictions: 15 Lbs X2 weeks postop Dressing / Incision Call your doctor if your incision/area has: Continuous Slow Oozing, Increased Pain/ Swelling, Increased Redness, Foul Smelling Discharge and Swelling at the incision site Call your doctor if you observe: Fever of 101 or Higher Cleanse incision/area with: Soap & Water and Keep Dressing Clean & Dry Follow Up Care Please Follow Up With: Taye Gonzalez MD When: 10-14 days postop Test Results: Test results from this visit will be discussed in further detail at your follow- up appointment, if applicable. Discharge Plan Admission Primary Reason for Your Visit: Placement of peritoneal dialysis catheter Attending Provider: Taye Gonzalez Primary Care Provider: Juan Carlos Benton Instructions Patient Instructions: Peritoneal Dialysis (PD), PD Catheter Exit Site Care Discharge Orders/Prescriptions Prescriptions: New oxycodone 5 mg tablet 5 mg PO Q6H PRN (Reason: pain) 3 Days Qty: 10 0RF Continued famotidine 20 mg tablet 20 mg PO DAILY polysaccharide iron complex [Ferrex 150] 150 mg iron capsule 150 mg PO DAILY rosuvastatin 20 mg tablet 20 mg PO DAILY sevelamer carbonate 800 mg tablet 1,600 mg PO TID Rx Instructions: must administer with a meal/food sodium bicarbonate 650 mg tablet 650 mg PO BID fluticasone propionate [Allergy Relief (fluticasone)] 50 mcg/actuation spray,suspension 1 spray intranasal DAILY PRN (Reason: allergy symptoms) Rx Instructions: administer into each nostril amlodipine 5 mg tablet 5 mg PO DAILY calcium citrate-vitamin D3 315 mg-6.25 mcg (250 unit) tablet 1 tab PO DAILY Referrals / Follow Up: Juan Carlos Benton PA [Primary Care Provider] - Disposition Disposition (needs filled in before D/C Order can be placed): Home, Self Care
[2023-10-21] MEDS: oxyCODONE 5 MG Tablet PO (11:41)
== END 2023-10-21 12:55 | disposition home or self-care (01) ==
LOC: SDC 05:58 → AC 05:58
PROVIDERS: PCP Physician Assistant; Referring Provider Surgery; Visit Provider Surgery
PROC: 0WHG43Z Insertion of Infusion Device into Peritoneal Cavity, Percutaneous Endoscopic Approach (ICD-10-PCS; CPT 49324; principal; 2023-10-21 07:15)
DX: I12.9 Hypertensive chronic kidney disease with stage 1 through stage 4 chronic kidney disease, or unspecified chronic kidney disease (principal); N18.4 Chronic kidney disease, stage 4 (severe); D50.0 Iron deficiency anemia secondary to blood loss (chronic); E78.5 Hyperlipidemia, unspecified; D63.1 Anemia in chronic kidney disease; Z90.89 Acquired absence of other organs
CPT/HCPCS: 49324; 49326; 00840; 87077; 87081; J7030; J2405

== ENCOUNTER → 2023-10-27 | Outpatient (CLI) | payer OTHER, SELFPAY ==
--- NOTE | 2023-10-27 16:19 | RAD_ITS ---
INDICATION: END STAGE RENAL DISEASE EXAMINATION/TECHNIQUE: X-RAY - XR Chest 2 Views COMPARISON: No relevant prior comparison studies available. FINDINGS: LINES/DEVICES: None. LUNGS: Symmetric normal lung volumes. No airspace opacity or abnormal interstitial pattern. No nodule or mass. No pleural effusion or pneumothorax. Accessory azygous fissure noted. MEDIASTINUM AND CARDIOVASCULAR STRUCTURES: Normal size and contour of the cardiomediastinal silhouette. No evidence of pulmonary vascular congestion. BONES AND SOFT TISSUES: No fracture or focal osseous lesion. RAD/Chest PA and Lateral IMPRESSION: 1. No radiographic evidence of acute cardiopulmonary disease. No evidence of volume overload. Electronically Signed: Taye Weiss DO at 23:50 EDT ,
== END | disposition home or self-care (01) ==
PROVIDERS: PCP Physician Assistant; Referring Provider Internal Medicine Nephrology; Visit Provider Internal Medicine Nephrology
DX: N18.6 End stage renal disease (principal)
CPT/HCPCS: 71046

== ENCOUNTER 2023-11-02 10:23 | Emergency (ER) | payer OTHER, SELFPAY ==
[2023-11-02 10:24] VITALS: BP 145/92; PULSE 107; RESP 18; TEMP 37.6; O2SAT 100; BMI 18.9
[2023-11-02] MEDS: Ondansetron 4 MG/2 ML Vial IV (10:52)
[2023-11-02] MEDS: 0.9% Normal Saline (500mL Bag) 500 ML 1000 ML IV (10:52)
--- NOTE | 2023-11-02 10:55 | EDS_ITS ---
HPI History of Present Illness Chief Complaint: Fever Informant: patient Narrative Narrative: 23-year-old male with a history of chronic renal failure from unknown etiology, he has been told most recently that it is due to some type of autoimmune problem, who presents with nausea, vomiting, diarrhea, and fever up to 103 that started yesterday evening around 12-14 hours ago. He has had more diarrhea than anything, he has vomited once. No blood in either. No melena. He had a peritoneal dialysis catheter placed 1.5 weeks ago in preparation for dialysis, he sees Dr. Ayesha Parsons for nephrology. He has had no abdominal pains with these symptoms since yesterday. No known sick contacts. He states he lives alone. He has had some mild headaches and myalgias along with this especially when his fever is up. He denies respiratory symptoms. Denies any travel out of the area recently. He had peritoneal dialysis catheter placed at same-day surgery 1.5 weeks ago he was not admitted. 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 Non-smoker Seizures Vitamin D deficiency Home Medications famotidine 20 mg tablet 20 mg PO DAILY 05/30/23 [History Last Taken 10/19/23] polysaccharide iron complex 150 mg iron capsule (Ferrex) 150 mg PO DAILY 05/30/23 [History Last Taken 10/19/23] rosuvastatin 20 mg tablet 20 mg PO DAILY 05/30/23 [History Last Taken 10/19/23] sevelamer carbonate 800 mg tablet 1,600 mg PO TID 05/30/23 [History Last Taken 10/19/23] sodium bicarbonate 650 mg tablet 650 mg PO BID 05/30/23 [History Last Taken 10/19/23] fluticasone propionate 50 mcg/actuation nasal spray,suspension (Allergy Relief (fluticasone)) 1 spray intranasal DAILY PRN allergy symptoms 06/24/23 [History Last Taken 10/19/23] amlodipine 5 mg tablet 5 mg PO DAILY 09/25/23 [History Last Taken 10/20/23 21:00] calcium citrate 315 mg calcium-vitamin D3 6.25 mcg (250 unit) tablet 1 tab PO DAILY 09/25/23 [History Last Taken 10/19/23] oxycodone 5 mg tablet 5 mg PO Q6H PRN pain 3 days #10 tabs 10/21/23 [Rx Last Taken Unknown] ondansetron 8 mg disintegrating tablet 8 mg PO Q8H PRN nausea and vomiting #15 tabs 11/02/23 [Rx Last Taken Unknown] Allergy/AdvReac Type Severity Reaction Status Date / Time tacrolimus Allergy Severe seizure Verified 11/02/23 10:26 tree nut Allergy Intermediate Angioedema Verified 11/02/23 10:26 Family History Father Psoriasis Mother Hypertension Hyperlipidemia Grandfather Heart disease Grandmother Seizures Surgical History History of adenoidectomy History of biopsy History of removal of Port-a-Cath History of tonsillectomy Social History Smoking Status: Never smoker alcohol intake: never ROS ROS ED Constitutional Constitutional ED: Reports body ache(s), chills and fever(s) Eyes Eyes: Denies change in vision or diplopia ENT ENT ED: Denies rhinorrhea or sore throat Cardiovascular Cardiovascular: Denies chest pain or palpitations Respiratory/Chest Respiratory/Chest: Denies cough or dyspnea Gastrointestinal Gastrointestinal: Reports diarrhea, nausea and vomiting; Denies abdominal pain, hematemesis, hematochezia or melena Genitourinary Genitourinary ED: Denies dysuria, hematuria or urinary frequency Musculoskeletal Musculoskeletal: Denies back pain or neck pain Integumentary Denies abscess or rash Neurologic Neurologic: Reports headache(s); Denies paresthesias or weakness Psychiatric Psychiatric: Denies anxiety or suicidal thoughts EXAM Physical Exam Const Vital Signs: 11/02/23 10:24 11/02/23 10:54 11/02/23 11:14 Temperature 99.7 F H 99.1 F Temperature Source Temporal Oral Pulse Rate 107 H 84 Respiratory Rate 18 16 Respiratory Effort Normal Non-Labored Respiratory Pattern Normal Blood Pressure 145/92 H 132/89 H Blood Pressure Mean 109 103 Pulse Ox 100 99 Oxygen Delivery Method Room Air Room Air 11/02/23 13:12 11/02/23 14:09 Temperature 98.5 F 98.5 F Temperature Source Oral Oral Pulse Rate 87 88 Respiratory Rate 16 18 Respiratory Effort Respiratory Pattern Blood Pressure 130/97 H 140/87 H Blood Pressure Mean 108 104 Pulse Ox 99 100 Oxygen Delivery Method Room Air Room Air Positive well nourished and well developed General Appearance ED: well developed and NAD HEENT Reports moist mucous membranes normocephalic and atraumatic Eyes PERRL and EOMs intact bilaterally Neck full ROM and supple Resp normal respiratory effort and clear to auscultation bilaterally Cardio regular rate, regular rhythm and no murmurs Rate: other Other Details: Mild tachycardia GI non-tender and non-distended GI Narrative: Benign abdomen, flat nondistended with hyperactive bowel sounds. All surgical incisions appear to be healing well without signs of infection or significant tenderness. Peritoneal dialysis catheter and site in the left mid abdomen appear benign. Auscultation: hyperactive bowel sounds Palpation: soft Back/Spine no CVA tenderness General Back: other FROM Extremity normal to inspection General Extremety ED: Negative for edema, pulses abnormal or tenderness General Extremity: Negative for edema or pulses abnormal Neuro oriented x3, CN's II-XII intact bilaterally and no sensory deficits noted Sensorium / Orientation: awake and alert Motor Exam: strength 5/5 throughout Skin no rashes or lesions noted and no wounds MDM MDM MDM Narrative Medical decision making narrative: Obtain some labs but we gave him half liter of IV fluid and Zofran which helped him feel better. His labs show mild acute hyperkalemia which she did not have before, but his renal function actually is a little better with regards to the numbers than it was in his last measurements. I obtained an EKG, does not show any EKG findings of hyperkalemia on my interpretation. While obtaining this he was simultaneously given Kayexalate 15 g, in order to get his potassium down along with hydration. We observed him for a while and then rechecked his potassium later. In the meantime, I discussed with surgery Dr. Ortiz, and discussed the fact that I do not think clinically he has peritonitis without necessarily his symptoms are related to catheter, however since he just had this placed and had a fever of 103 at home, I asked whether he recommended we obtain a culture of peritoneal fluid. He agreed that would be a good idea and have him follow-up with Dr. Gonzalez after the culture results come back in a couple days, discussed with nursing to obtain that culture. Repeat potassium 4.6 well within the normal range, reassuring, patient feeling much better and is comfortable discharge home with treatment for Zofran and close outpatient follow-up. Lab Data Attestation: I reviewed the patient's lab results. Labs: Laboratory Results - last 24 hr 11/02/23 11/02/23 10:50 14:00 WBC 5.2 RBC 2.93 L Hgb 8.5 L Hct 26.5 L MCV 90.4 MCH 29.0 MCHC 32.1 RDW Std Deviation 42.3 RDW Coeff of Lele 12.9 Plt Count 193 MPV 8.7 Immature Gran % (Auto) 1.200 H Neut % (Auto) 71.0 H Lymph % (Auto) 12.4 L [place] % (Auto) 11.3 H Eos % (Auto) 3.5 Baso % (Auto) 0.6 Absolute Neuts (auto) 3.7 Absolute Lymphs (auto) 0.64 L Nucleated RBC % 0 Sodium 143 Potassium 5.2 H 4.6 Chloride 118 H Carbon Dioxide 21.0 Anion Gap 4 L BUN 42 H Creatinine 4.86 H Estim Creat Clear Calc 18.57 Est GFR (MDRD) Af Amer 19 L Est GFR (MDRD) Non-Af 16 L BUN/Creatinine Ratio 8.6 L Glucose 101 Calcium 8.1 L Total Bilirubin 0.30 AST 20 ALT 28 Alkaline Phosphatase 66 Total Protein 5.1 L Albumin 2.0 L Globulin 3.1 Albumin/Globulin Ratio 0.6 L Management Discussion w/another healthcare provider: Instrumental Musician (Surgery Dr. Ortiz) Discharge Plan Triage Chief Complaint: Fever ED Provider: Carrington Kidd Dx/Rx/DC Orders Clinical Impression: Chronic kidney disease, stage 4 (severe), Gastroenteritis, Acute hyperkalemia Instructions: Viral Gastroenteritis, Hyperkalemia Dc Prescriptions: New ondansetron 8 mg tablet,disintegrating 8 mg PO Q8H PRN (Reason: nausea and vomiting) Qty: 15 0RF No Action famotidine 20 mg tablet 20 mg PO DAILY polysaccharide iron complex [Ferrex 150] 150 mg iron capsule 150 mg PO DAILY rosuvastatin 20 mg tablet 20 mg PO DAILY sevelamer carbonate 800 mg tablet 1,600 mg PO TID Rx Instructions: must administer with a meal/food sodium bicarbonate 650 mg tablet 650 mg PO BID fluticasone propionate [Allergy Relief (fluticasone)] 50 mcg/actuation spray,suspension 1 spray intranasal DAILY PRN (Reason: allergy symptoms) Rx Instructions: administer into each nostril amlodipine 5 mg tablet 5 mg PO DAILY calcium citrate-vitamin D3 315 mg-6.25 mcg (250 unit) tablet 1 tab PO DAILY oxycodone 5 mg tablet 5 mg PO Q6H PRN (Reason: pain) 3 Days Qty: 10 0RF Primary Care Provider: Juan Carlos Benton Referrals: Ayesha Parsons DO [Med Staff - Consulting] - 3-5 Days Taye Gonzalez MD [Med Staff - Active Staff] - 3-5 Days (call for appt to be seen after friday, so that your culture will likely be done) Juan Carlos Benton PA [Primary Care Provider] - 1-2 Days if not improving Disposition Disposition: Home, Self Care
[2023-11-02 10:57] LABS: Absolute Lymphocyte Count 0.64 X10^3/uL (0.83-4.51); Absolute Neutrophil Count 3.7 X10^3/uL (2.0-7.7); Basophil# 0.03 X10^3/uL; Basophil% 0.6 % (0-1); Eosinophil# 0.18 X10^3/uL; Eosinophils% 3.5 % (0-5); Hematocrit 26.5 % (40-54); Hemoglobin 8.5 g/dL (13.0-16.5); Lymphocyte # 0.64 X10^3/ul (0.83-4.51); Lymphocyte % 12.4 % (19-41); Mean Corp Hgb Conc 32.1 g/dL (32-36); Mean Corpuscular Volume 90.4 fL (80-94); Mean Platelet Vol. 8.7 fl (6.2-12.0); Monocyte# 0.58 X10^3/uL; Monocyte% 11.3 % (0-10); NRBC Flagged by Analyzer 0 % (0-5); Neutrophil # 3.66 X10^3/uL (2.7-7.7); Platelet Count 193 K/mm3 (150-450); RBC Distribution Width CV 12.9 % (11.6-14.6); RBC Distribution Width SD 42.3 fl (35.1-43.9); Red Blood Count 2.93 M/mm3 (4.6-6.2); White Blood Count 5.2 K/mm3 (4.4-11.0)
[2023-11-02 11:14] VITALS: BP 132/89; PULSE 84; RESP 16; TEMP 37.3; O2SAT 99
[2023-11-02 11:14] LABS: ALB/GLOB Ratio 0.6 RATIO (0.9-2.4); AST(SGOT) 20 U/L (15-37); Alanine Aminotransfer ALT/SGPT 28 U/L (16-61); Alkaline Phosphatase 66 U/L (45-117); Anion Gap 4 (5-15); BUN 42 mg/dL (7-18); BUN/Creat Ratio 8.6 RATIO (10-20); Calcium,Total 8.1 mg/dL (8.5-10.1); Chloride 118 mmol/L (98-107); Creatinine, Serum 4.86 mg/dL (0.70-1.30); EST Glomerular Filtration Rate 16 mL/min (>60); Est Glom Filt Rate - Afr Amer 19 mL/min (>60); Estimated Creatinine Clearance 18.57 ml/min; Globulin 3.1 g/dL (2.2-4.2); Glucose 101 mg/dL (74-106); Potassium 5.2 mmol/L (3.5-5.1); Protein, Total 5.1 g/dL (6.4-8.2); Sodium Level 143 mmol/L (136-145)
--- NOTE | 2023-11-02 11:17 | EKG12_ITS ---
Test Reason : GENERAL Blood Pressure : / mmHG Vent. Rate : 082 BPM Atrial Rate : 082 BPM P-R Int : 128 ms QRS Dur : 090 ms QT Int : 348 ms P-R-T Axes : 063 088 048 degrees QTc Int : 406 ms Normal sinus rhythm Normal ECG Confirmed by Taye Leiva ([id number]), acquisitions editor BERNADINE CURTIS ([id number]) on 11/04/2023 10:23:13 AM Referred By: Confirmed By:Taye Leiva
[2023-11-02] MEDS: Sodium Polystyrene Sulfonate 15 GM/60 ML UDC PO (12:04)
[2023-11-02 13:12] VITALS: BP 130/97; PULSE 87; RESP 16; TEMP 36.9; O2SAT 99
[2023-11-02 14:09] VITALS: BP 140/87; PULSE 88; RESP 18; TEMP 36.9; O2SAT 100
[2023-11-02 14:18] LABS: Potassium 4.6 mmol/L (3.5-5.1)
[2023-11-02 15:03] VITALS: BP 140/87; PULSE 88; RESP 18; TEMP 36.9; O2SAT 100
== END 2023-11-02 15:03 | disposition home or self-care (01) ==
PROVIDERS: Emergency Provider Emergency Medicine; PCP Physician Assistant; Visit Provider Emergency Medicine
DX: K52.9 Noninfective gastroenteritis and colitis, unspecified (principal); N18.4 Chronic kidney disease, stage 4 (severe); E87.5 Hyperkalemia; I12.9 Hypertensive chronic kidney disease with stage 1 through stage 4 chronic kidney disease, or unspecified chronic kidney disease; E78.00 Pure hypercholesterolemia, unspecified; K21.9 Gastro-esophageal reflux disease without esophagitis; Z79.899 Other long term (current) drug therapy
CPT/HCPCS: 80053; 84132; 85025; 87070; 87075; 87205; 93005; 96374; 99284; J7030; A4216; J2405

== ENCOUNTER 2024-07-15 22:48 | Emergency (ER) | payer OTHER, MEDICARE, SELFPAY ==
[2024-07-15 22:50] VITALS: BP 177/79; PULSE 111; RESP 18; TEMP 36.4; O2SAT 100
--- NOTE | 2024-07-15 23:23 | EKG12_ITS ---
Test Reason : HYPERTENSION Blood Pressure : */* mmHG Vent. Rate : 103 BPM Atrial Rate : 103 BPM P-R Int : 124 ms QRS Dur : 82 ms QT Int : 342 ms P-R-T Axes : 31 80 6 degrees QTcB Int : 448 ms Sinus tachycardia Otherwise normal ECG Confirmed by TESSIE MAST, TRIXIE ([id number]), web editor BERNADINE CURTIS ([id number]) on 07/21/2024 1:27:59 P M Referred By: Confirmed By: TRIXIE KURTZ MD
[2024-07-15] MEDS: Labetalol (Prefilled) 20 MG/4 ML Vial IV (23:37)
[2024-07-15 23:42] LABS: Absolute Lymphocyte Count 1.29 X10^3/uL (0.83-4.51); Absolute Neutrophil Count 7.3 X10^3/uL (2.0-7.7); Basophil# 0.03 X10^3/uL; Basophil% 0.3 % (0-1); Eosinophil# 0.01 X10^3/uL; Eosinophils% 0.1 % (0-5); Hemoglobin 9.8 g/dL (13.0-16.5); Lymphocyte # 1.29 X10^3/ul (0.83-4.51); Lymphocyte % 14.4 % (19-41); Mean Corp Hgb Conc 33.8 g/dL (32-36); Mean Corpuscular Hgb 31.1 pg (27.0-32.0); Mean Corpuscular Volume 92.1 fL (80-94); Mean Platelet Vol. 9.4 fl (6.2-12.0); Monocyte% 2.2 % (0-10); NRBC Flagged by Analyzer 0 % (0-5); Neutrophil # 7.33 X10^3/uL (2.7-7.7); Neutrophil % 82.2 % (47-70); Platelet Count 193 K/mm3 (150-450); RBC Distribution Width CV 13.8 % (11.6-14.6); RBC Distribution Width SD 46.3 fl (35.1-43.9); Red Blood Count 3.15 M/mm3 (4.6-6.2); White Blood Count 8.9 K/mm3 (4.4-11.0)
[2024-07-15 23:49] VITALS: BP 148/88
[2024-07-15 23:57] LABS: Anion Gap 9 (5-15); BUN 39 mg/dL (7-18); BUN/Creat Ratio 20.7 RATIO (10-20); Calcium,Total 9.3 mg/dL (8.5-10.1); Chloride 112 mmol/L (98-107); Creatinine, Serum 1.88 mg/dL (0.70-1.30); EST Glomerular Filtration Rate 46 mL/min (>60); Est Glom Filt Rate - Afr Amer 56 mL/min (>60); Estimated Creatinine Clearance 50.47 ml/min; Glucose 100 mg/dL (74-106); Magnesium 1.6 mg/dL (1.6-2.6); Potassium 4.2 mmol/L (3.5-5.1); Sodium Level 140 mmol/L (136-145)
[2024-07-16 00:01] LABS: Osmolality, Serum 300 mOsm/KG (275-295); Phosphorus 3.5 mg/dL (2.5-4.9)
[2024-07-16 00:58] LABS: Protein, Urine (Random) 280.5 mg/dL (<11.9); Protein:Creat Ratio 8037 mg/g CRE (0-200)
[2024-07-16 01:00] VITALS: BP 146/88; PULSE 96; RESP 18; O2SAT 97
[2024-07-16] MEDS: cloNIDine HCl 0.1 MG Tablet PO (01:39)
[2024-07-16] MEDS: Labetalol (Prefilled) 20 MG/4 ML Vial IV (01:40)
--- NOTE | 2024-07-16 01:55 | EX.ED.DYSGE1 ---
HPI History of Present Illness Chief Complaint: Hypertension Informant: patient and parent Narrative Narrative: Patient is a 24-year-old male with past medical history of hypertension hyperlipidemia and chronic kidney disease secondary to autoimmune disorder requiring a renal transplant. Transplant occurred in May at [facility]. Patient states he has been following with the transplant team as directed. He states he had scheduled outpatient blood work today and then seeming kind of felt shaky. He states he took his blood pressure and it was elevated. He states that he contacted the transplant team and he was advised that if his blood pressure increases over a value of 160 that heme will need to go to the hospital for evaluation. The patient states that when he rechecked his pressure was now about 165 and therefore he presents for evaluation at this time. Patient reports has been taking all of his medications as directed. He denies any illicit drug use or excessive stimulant use. He states there is no headache or change in vision or abdominal pain he denies any chest pain or shortness of breath. 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 Chronic kidney disease, stage 4 (severe) Home Medications ?Medication ?Instructions ?Recorded ?Last Taken ?Type famotidine 20 mg tablet 20 mg PO DAILY 05/30/23 10/19/23 History polysaccharide iron complex 150 mg 150 mg PO DAILY 05/30/23 10/19/23 History iron capsule (Ferrex) rosuvastatin 20 mg tablet 20 mg PO DAILY 05/30/23 10/19/23 History sevelamer carbonate 800 mg tablet 1,600 mg PO TID 05/30/23 10/19/23 History sodium bicarbonate 650 mg tablet 650 mg PO BID 05/30/23 10/19/23 History fluticasone propionate 50 1 spray intranasal DAILY PRN 06/24/23 10/19/23 History mcg/actuation nasal allergy symptoms spray,suspension (Allergy Relief (fluticasone)) amlodipine 5 mg tablet 5 mg PO DAILY 09/25/23 10/20/23 21:00 History calcium 315 mg (as 1 tab PO DAILY 09/25/23 10/19/23 History citrate)-vitamin D3 6.25 mcg (250 unit) tablet ondansetron 8 mg disintegrating 8 mg PO Q8H PRN nausea and 11/02/23 Unknown Rx tablet vomiting #15 tabs mycophenolate mofetil 250 mg 500 mg PO BID 07/15/24 Unknown History capsule (CellCept) prednisone 5 mg tablet PO 07/15/24 Unknown History sulfamethoxazole 400 1 tab PO DAILY 07/15/24 Unknown History mg-trimethoprim 80 mg tablet (Bactrim) tacrolimus 1 mg capsule, 5 mg PO 07/15/24 Unknown History immediate-release valganciclovir 450 mg tablet 900 mg PO DAILY 07/15/24 Unknown History Allergy/AdvReac Type Severity Reaction Status Date / Time tacrolimus Allergy Severe seizure Verified 07/15/24 22:52 tree nut Allergy Intermediate Angioedema Verified 07/15/24 22:52 Family History Father Psoriasis Mother Hypertension Hyperlipidemia Grandfather Heart disease Grandmother Seizures Surgical History (Updated 07/16/24 @ 01:[address] Joe Hills, DO) History of removal of Port-a-Cath History of adenoidectomy History of biopsy History of tonsillectomy Social History Smoking Status: Never smoker alcohol intake: never ROS ROS ED Constitutional Constitutional ED: Denies chills or fever(s) Eyes Eyes: Denies blurry vision or change in vision ENT ENT ED: Denies sore throat Cardiovascular Cardiovascular: Denies chest pain, palpitations or racing heartbeat Respiratory/Chest Respiratory/Chest: Denies cough or dyspnea Gastrointestinal Gastrointestinal: Denies abdominal pain, diarrhea, nausea or vomiting Genitourinary Genitourinary ED: Denies dysuria Musculoskeletal Musculoskeletal: Denies back pain Integumentary Denies rash Neurologic Neurologic: Denies headache(s) or paresthesias Hematologic/Lymphatic Hematologic/Lymphatic: Denies easy bleeding or easy bruising EXAM Physical Exam Const Vital Signs: 07/15/24 22:50 07/15/24 22:55 07/15/24 23:49 Temperature 97.6 F L Temperature Source Temporal Pulse Rate 111 H Respiratory Rate 18 Respiratory Effort Normal Respiratory Pattern Normal Blood Pressure 177/79 H 148/88 H Blood Pressure Mean 111 108 Pulse Ox 100 Oxygen Delivery Method Room Air 07/16/24 01:00 07/16/24 02:03 Temperature 98.1 F Temperature Source Pulse Rate 96 89 Respiratory Rate 18 17 Respiratory Effort Respiratory Pattern Blood Pressure 146/88 H 154/92 H Blood Pressure Mean 107 112 Pulse Ox 97 98 Oxygen Delivery Method Room Air Positive well nourished and well developed General Appearance ED: well developed; Negative for pallor HEENT HEENT Narrative: Normocephalic atraumatic Eyes PERRL and EOMs intact bilaterally General Eye ED: Negative for scleral icterus Neck supple and no JVD Neck Narrative: No nuchal rigidity or meningeal signs Chest Wall palpation of chest normal Resp normal respiratory effort and clear to auscultation bilaterally Cardio regular rate and regular rhythm Rate: other Other Details: Heart is regular rate and rhythm without murmurs rubs or gallop Radial and carotid pulses are equal and symmetric GI normal to inspection, nondistended, normoactive bowel sounds, non-tender, non-distended and no masses GI Narrative: Incisions are clean dry and intact without secondary findings to suggest infection No rigidity/peritoneal signs to suggest spontaneous bacterial peritonitis No pulsatile mass Auscultation: normoactive bowel sounds Palpation: soft Back/Spine no CVA tenderness Extremity normal to inspection Extremity Narrative: Trace pitting edema to the bilateral lower extremities that is equal and symmetric Negative Homans' sign bilaterally Neuro oriented x3, CN's II-XII intact bilaterally and no sensory deficits noted Sensorium / Orientation: alert Motor Exam: strength 5/5 throughout Psych Mood & Affect: anxious Skin no rashes or lesions noted Skin Narrative: Previous surgical wounds that show no secondary findings of infection General Skin Exam: Negative for jaundice or pallor MDM MDM MDM Narrative Medical decision making narrative: Patient presented to the ER hypertensive but otherwise with stable vital. He reported that he had contacted his transplant team and was vies to come to the ER for further workup regarding his hypertension status post surgery. He does not have findings of endorgan damage such as headache change in vision or altered mental status and therefore I do not feel there is need for head CT as my concern for hypertensive encephalopathy or spontaneous subarachnoid or subdural hemorrhage is low. An EKG was obtained to rule out cardiac ischemia and revealed no acute finding. Basic blood work was obtained and shows stable creatinine at 1.88 as well as BUN at 39 and no clinically significant electrolyte abnormality. The patient was given 20 mg of IV labetalol and his blood pressure improved to approximately 145. The case was discussed with [facility] transplant team. They feel at this time as he has no signs of endorgan damage and his kidney function is not grossly elevated his blood pressure has improved there is no need for transfer or further workup. They recommend he take an extra dose of his amlodipine if his pressure spikes over the weekend but he does have an appointment on Friday and at that time they will discuss adjusting medication and/or imaging of his renal artery with a ultrasound to ensure there is no stenosis or obstruction. This plan of care was discussed with the patient and family and they are agreeable to it and therefore he is otherwise safe for discharge as his overall workup is negative and his hypertension has improved History & Record Review Discussion w/independent historian: Patient and Family Lab Data Attestation: I reviewed the patient's lab results. Labs: Laboratory Results - last 24 hr 07/15/24 07/16/24 23:32 00:17 WBC 8.9 RBC 3.15 L Hgb 9.8 L Hct 29.0 L MCV 92.1 MCH 31.1 MCHC 33.8 RDW Std Deviation 46.3 H RDW Coeff of Lele 13.8 Plt Count 193 MPV 9.4 Immature Gran % (Auto) 0.800 Neut % (Auto) 82.2 H Lymph % (Auto) 14.4 L [place] % (Auto) 2.2 Eos % (Auto) 0.1 Baso % (Auto) 0.3 Absolute Neuts (auto) 7.3 Absolute Lymphs (auto) 1.29 Nucleated RBC % 0 Sodium 140 Potassium 4.2 Chloride 112 H Carbon Dioxide 19.0 L Anion Gap 9 BUN 39 H Creatinine 1.88 H Estim Creat Clear Calc 50.47 Est GFR (MDRD) Af Amer 56 L Est GFR (MDRD) Non-Af 46 L BUN/Creatinine Ratio 20.7 H Glucose 100 Serum Osmolality 300 H Calcium 9.3 Phosphorus 3.5 Magnesium 1.6 U Random Total Protein 280.5 H Urine Creatinine 34.90 Protein/Creatinin Ratio 8037 H Management 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 Discharge Plan Triage Chief Complaint: Hypertension ED Provider: Joe Hills Dx/Rx/DC Orders Clinical Impression: Accelerated hypertension, History of renal transplant, Hyperlipidemia Instructions: Controlling High Blood Pressure, After Kidney Transplant Prescriptions: No Action famotidine 20 mg tablet 20 mg PO DAILY polysaccharide iron complex [Ferrex 150] 150 mg iron capsule 150 mg PO DAILY rosuvastatin 20 mg tablet 20 mg PO DAILY sevelamer carbonate 800 mg tablet 1,600 mg PO TID Rx Instructions: must administer with a meal/food sodium bicarbonate 650 mg tablet 650 mg PO BID fluticasone propionate [Allergy Relief (fluticasone)] 50 mcg/actuation spray,suspension 1 spray intranasal DAILY PRN (Reason: allergy symptoms) Rx Instructions: administer into each nostril amlodipine 5 mg tablet 5 mg PO DAILY calcium citrate-vitamin D3 315 mg-6.25 mcg (250 unit) tablet 1 tab PO DAILY ondansetron 8 mg tablet,disintegrating 8 mg PO Q8H PRN (Reason: nausea and vomiting) Qty: 15 0RF tacrolimus 1 mg capsule 5 mg PO mycophenolate mofetil [CellCept] 250 mg capsule 500 mg PO BID sulfamethoxazole-trimethoprim [Bactrim] 400-80 mg tablet 1 tab PO DAILY valganciclovir 450 mg tablet 900 mg PO DAILY prednisone 5 mg tablet PO Primary Care Provider: Juan Carlos Benton Referrals: Juan Carlos Benton PA [Primary Care Provider] - Activity Restrictions/Additional Instructions: Please keep your appointment with your transplant team for this coming Friday. At that time they can discuss medication adjustment and potentially a renal artery ultrasound. In the meantime if your blood pressure spikes before the visit please sit down and wait 20 to 30 minutes and try to relax and recheck the blood pressure. If it remains elevated take an extra dose of your blood pressure medication. If you have any further concerns please return to the ER for repeat evaluation Print Language: Nepalese Disposition Disposition: Home, Self Care Discharge Date/Time: 07/16/24 02:07
[2024-07-16 02:03] VITALS: BP 154/92; PULSE 89; RESP 17; TEMP 36.7; O2SAT 98
== END 2024-07-16 02:07 | disposition home or self-care (01) ==
PROVIDERS: Emergency Provider Emergency Medicine; PCP Physician Assistant; Visit Provider Emergency Medicine
DX: I12.9 Hypertensive chronic kidney disease with stage 1 through stage 4 chronic kidney disease, or unspecified chronic kidney disease (principal); N18.4 Chronic kidney disease, stage 4 (severe); Z94.0 Kidney transplant status; E78.5 Hyperlipidemia, unspecified; D63.1 Anemia in chronic kidney disease
CPT/HCPCS: 80048; 82570; 83735; 83930; 84100; 84156; 85025; 93005; 96374; 99282; A4216

== ENCOUNTER 2024-08-21 22:13 | Emergency (ER) | payer OTHER, MEDICARE, SELFPAY ==
[2024-08-21 22:14] VITALS: BP 139/85; PULSE 113; RESP 18; TEMP 37.7; O2SAT 100; BMI 20.1
[2024-08-21 22:16] VITALS: BP 131/90; PULSE 101; RESP 14; TEMP 37.7; O2SAT 100
[2024-08-21 23:13] VITALS: BP 139/86; PULSE 103; RESP 18; O2SAT 99
[2024-08-21 23:16] VITALS: BP 139/86; PULSE 106; RESP 18; TEMP 37.6; O2SAT 99
[2024-08-21] MEDS: 0.9% Normal Saline (1000mL) 1,000 ML 999 ML IV (23:51)
[2024-08-21] MEDS: Piperacil/Tazobactam 3.375 GM in 0.9% Normal Saline (50mL MB+) 50 ML IV (23:51)
--- NOTE | 2024-08-21 23:59 | RAD_ITS ---
INDICATION: fever pt had a kidney transplant 3 mo ago. pt called clinical sales consultant transplant dr with home oral temp of 100.6, and 100.8. pt sent to ED. pt c/o cough, and pain radiating to neck and increased pain at surgery site. EXAMINATION/TECHNIQUE: X-RAY - XR Chest 2 Views COMPARISON: Prior study dated: 10/27/2023 FINDINGS: LINES/DEVICES: Indwelling central venous catheter from tunneled right IJ approach with tip in the region of the right atrium, is new compared to the prior. LUNGS: No consolidation. No pneumothorax. MEDIASTINUM: Unremarkable. CARDIAC SILHOUETTE: Not enlarged. BONES AND SOFT TISSUES: No acute abnormalities. RAD/Chest PA and Lateral IMPRESSION: No evidence of active intrathoracic disease. Electronically Signed: Paula Byers MD at 1:44 EST ,
[2024-08-22] VITALS: BP 139/86; PULSE 104; RESP 18; TEMP 37.6; O2SAT 99
[2024-08-22] MEDS: Acetaminophen 500 MG Tablet 1000 MG PO (00:09)
[2024-08-22] MEDS: Vancomycin IV 1,000 MG/200 ML BAG 200 MG IV (00:33)
[2024-08-22 00:41] LABS: Bacteria 0 SEEN /hpf (None Seen); Mucous, Urine 0 SEEN /hpf (<or=2+); Red Blood Cells-Urine 0 SEEN /hpf (0-5); Squamous Epithelial Cells - UA 0 SEEN /hpf (0-5); White Blood Cells 0 SEEN /hpf (0-5)
[2024-08-22 00:43] LABS: Absolute Lymphocyte Count 0.67 X10^3/uL (0.83-4.51); Basophil# 0.01 X10^3/uL; Basophil% 1.1 % (0-1); Eosinophil# 0.03 X10^3/uL; Eosinophils% 3.2 % (0-5); Hemoglobin 7.8 g/dL (13.0-16.5); Lymphocyte # 0.67 X10^3/ul (0.83-4.51); Lymphocyte % 71.3 % (19-41); Mean Corp Hgb Conc 33.9 g/dL (32-36); Mean Corpuscular Hgb 31.2 pg (27.0-32.0); Mean Platelet Vol. 9.8 fl (6.2-12.0); Monocyte# 0.15 X10^3/uL; NRBC Flagged by Analyzer 0 % (0-5); Neutrophil # 0.04 X10^3/uL (2.7-7.7); Neutrophil % 4.1 % (47-70); POSITIVE COUNT YES; POSITIVE DIFFERENTIAL YES; Platelet Count 243 K/mm3 (150-450); RBC Distribution Width CV 11.9 % (11.6-14.6); RBC Distribution Width SD 40.5 fl (35.1-43.9)
[2024-08-22 00:55] LABS: Anion Gap 7 (5-15); BUN 29 mg/dL (7-18); BUN/Creat Ratio 15.7 RATIO (10-20); Chloride 105 mmol/L (98-107); Creatinine, Serum 1.85 mg/dL (0.70-1.30); EST Glomerular Filtration Rate 47 mL/min (>60); Est Glom Filt Rate - Afr Amer 57 mL/min (>60); Glucose 103 mg/dL (74-106); Potassium 3.5 mmol/L (3.5-5.1); Sodium Level 137 mmol/L (136-145)
[2024-08-22 00:56] LABS: Color, Urine Yellow (Yellow); Glucose, Dipstick Normal (Normal); Ketone-Dipstick Negative (Negative); Leukocyte Esterase-Dipstick Negative /ul (Negative); Nitrite-Dipstick Negative (Negative); Occult Blood-Urine 10 /ul (Negative); Protein-Dipstick 100 mg/dl (Negative); Specific Gravity, Urine 1.005 (1.002-1.030); Urine Bilirubin Dipstick Negative (Negative); Urine Clarity Clear (Clear); Urine Urobilinogen Normal (Normal)
[2024-08-22 01:00] VITALS: BP 128/75; PULSE 95; RESP 18; TEMP 37.2; O2SAT 98
--- NOTE | 2024-08-22 01:04 | EX.ED.DYSGE1 ---
HPI History of Present Illness Chief Complaint: Fever Informant: patient and family Narrative Narrative: Patient is a 24-year-old male with history of renal failure secondary to glomerulonephritis. He underwent a kidney transplant 3 months ago and is currently on immunosuppressive medication. He states that in the last 24 hours he developed a fever above 100 degrees at home. He states that there is no real associated symptoms with this other than he has had congestion but that has been present for weeks. He denies nausea vomiting diarrhea dysuria chest pain or shortness of breath. 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 Chronic kidney disease, stage 4 (severe) Home Medications ?Medication ?Instructions ?Recorded ?Last Taken ?Type famotidine 20 mg tablet 20 mg PO DAILY 05/30/23 10/19/23 History polysaccharide iron complex 150 mg 150 mg PO DAILY 05/30/23 10/19/23 History iron capsule (Ferrex) rosuvastatin 20 mg tablet 20 mg PO DAILY 05/30/23 10/19/23 History sevelamer carbonate 800 mg tablet 1,600 mg PO TID 05/30/23 10/19/23 History sodium bicarbonate 650 mg tablet 650 mg PO BID 05/30/23 10/19/23 History fluticasone propionate 50 1 spray intranasal DAILY PRN 06/24/23 10/19/23 History mcg/actuation nasal allergy symptoms spray,suspension (Allergy Relief (fluticasone)) amlodipine 5 mg tablet 5 mg PO DAILY 09/25/23 10/20/23 21:00 History calcium 315 mg (as 1 tab PO DAILY 09/25/23 10/19/23 History citrate)-vitamin D3 6.25 mcg (250 unit) tablet ondansetron 8 mg disintegrating 8 mg PO Q8H PRN nausea and 11/02/23 Unknown Rx tablet vomiting #15 tabs mycophenolate mofetil 250 mg 500 mg PO BID 07/15/24 Unknown History capsule (CellCept) prednisone 5 mg tablet PO 07/15/24 Unknown History sulfamethoxazole 400 1 tab PO DAILY 07/15/24 Unknown History mg-trimethoprim 80 mg tablet (Bactrim) tacrolimus 1 mg capsule, 5 mg PO 07/15/24 Unknown History immediate-release valganciclovir 450 mg tablet 900 mg PO DAILY 07/15/24 Unknown History Allergy/AdvReac Type Severity Reaction Status Date / Time tree nut Allergy Intermediate Angioedema Verified 07/15/24 22:52 Family History Father Psoriasis Mother Hypertension Hyperlipidemia Grandfather Heart disease Grandmother Seizures Surgical History (Updated 07/24/24 @ 00:02 by Sarahi Levy) History of removal of Port-a-Cath History of adenoidectomy History of biopsy History of tonsillectomy Social History Smoking Status: Never smoker alcohol intake: never ROS ROS ED Constitutional Constitutional ED: Reports chills and fever(s) ENT ENT ED: Reports rhinorrhea; Denies sore throat Cardiovascular Cardiovascular: Denies chest pain Respiratory/Chest Respiratory/Chest: Denies cough or dyspnea Gastrointestinal Gastrointestinal: Denies abdominal pain, diarrhea, nausea or vomiting Genitourinary Genitourinary ED: Denies dysuria Musculoskeletal Musculoskeletal: Denies myalgias Integumentary Denies rash Neurologic Neurologic: Denies headache(s) Hematologic/Lymphatic Hematologic/Lymphatic: Denies easy bleeding or easy bruising EXAM Physical Exam Const Vital Signs: 08/21/24 22:14 08/21/24 22:16 08/21/24 22:21 Temperature 99.8 F H 99.8 F H Temperature Source Oral Oral Pulse Rate 113 H 101 H Respiratory Rate 18 14 Respiratory Effort Normal Respiratory Pattern Normal Blood Pressure 139/85 H 131/90 H Blood Pressure Mean 103 103 Pulse Ox 100 100 Oxygen Delivery Method Room Air Room Air 08/21/24 23:13 08/21/24 23:16 08/22/24 00:00 Temperature 99.6 F H 99.6 F H Temperature Source Oral Oral Pulse Rate 103 H 106 H 104 H Respiratory Rate 18 18 18 Respiratory Effort Respiratory Pattern Blood Pressure 139/86 H 139/86 H 139/86 H Blood Pressure Mean 103 103 103 Pulse Ox 99 99 99 Oxygen Delivery Method Room Air Room Air Room Air 08/22/24 01:00 08/22/24 02:00 Temperature 98.9 F 98.8 F Temperature Source Oral Oral Pulse Rate 95 92 Respiratory Rate 18 18 Respiratory Effort Respiratory Pattern Blood Pressure 128/75 H 129/77 H Blood Pressure Mean 92 94 Pulse Ox 98 97 Oxygen Delivery Method Room Air Room Air Positive well nourished and well developed General Appearance ED: well developed; Negative for pallor HEENT HEENT Narrative: Cobblestoning is noted in the posterior pharynx consistent with sinus drainage without airway edema or compromise No secondary findings to suggest infection in the posterior pharynx Eyes PERRL and EOMs intact bilaterally General Eye ED: Negative for scleral icterus Neck supple Neck Narrative: No nuchal rigidity or meningeal signs Resp normal respiratory effort and clear to auscultation bilaterally Resp Narrative: No nasal flaring retractions tachypnea or accessory muscle use Breath sounds are clear throughout Cardio regular rhythm Rate: tachycardic and other Other Details: Slightly tachycardic rate with regular rhythm GI normal to inspection, nondistended, normoactive bowel sounds, non-tender, non-distended and no masses GI Narrative: No voluntary guarding or rigidity or pulsatile mass Auscultation: normoactive bowel sounds Palpation: soft Extremity normal to inspection Extremity Narrative: No asymmetric edema no pitting edema negative Homans' sign bilaterally Neuro oriented x3, CN's II-XII intact bilaterally and no sensory deficits noted Sensorium / Orientation: alert Motor Exam: strength 5/5 throughout Psych mental status grossly normal Skin no rashes or lesions noted and no wounds General Skin Exam: Negative for jaundice or pallor MDM MDM MDM Narrative Medical decision making narrative: Patient arrived to the ER with low-grade fever but otherwise is awake and alert with stable vitals and in no acute distress. With this history of immunosuppressive status there is concern for neutropenic fever versus UTI versus pneumonia versus potential viral infection such as COVID influenza or RSV. Secondary to his fever and immunosuppressive status an IV was established he was started on vancomycin and Zosyn after blood cultures were obtained. Chest x-ray revealed no signs of lung pathology which correlates with his physical exam. Urine sample showed no signs of acute. Creatinine is slightly elevated at 1.85 but this is baseline status post transplant. White blood cell count has decreased to 0.9. Chart review reveals that outpatient labs had a white blood cell count of 1.19 and a neutrophil count of 0.04 on August 20. The patient's neutrophil count today is 0. Therefore at this time with his leukopenia neutropenia and fever and history of immunosuppression there is high likelihood of bacteremia/systemic infection causing his symptoms. I discussed the case with the [facility] transplant team and they do agree that he should be transferred to their facility for continued monitoring while they try to elicit the source of his fever. The patient was informed of the need for transfer and is agreeable to it. After receiving IV hydration and Tylenol the patient's vitals/temperature improved and he remained hemodynamically stable. Therefore as there is need for continued evaluation regarding neutropenic fever he will be transferred to [facility] for continued care History & Record Review Discussion w/independent historian: Patient and Family Lab Data Attestation: I reviewed the patient's lab results. Labs: Laboratory Results - last 24 hr 08/21/24 08/22/24 23:50 00:06 WBC 0.9 L* RBC 2.50 L Hgb 7.8 L Hct 23.0 L MCV 92.0 MCH 31.2 MCHC 33.9 RDW Std Deviation 40.5 RDW Coeff of Lele 11.9 Plt Count 243 MPV 9.8 Immature Gran % (Auto) 4.300 H Neut % (Auto) 4.1 L Lymph % (Auto) 71.3 H Benson % (Auto) 16.0 H Eos % (Auto) 3.2 Baso % (Auto) 1.1 H Absolute Neuts (auto) 0.0 L Absolute Lymphs (auto) 0.67 L Nucleated RBC % 0 Differential Comment SCANNED Diff Path Review May foll Sodium 137 Potassium 3.5 Chloride 105 Carbon Dioxide 25.0 Anion Gap 7 BUN 29 H Creatinine 1.85 H Estim Creat Clear Calc 50.00 Est GFR (MDRD) Af Amer 57 L Est GFR (MDRD) Non-Af 47 L BUN/Creatinine Ratio 15.7 Glucose 103 Lactic Acid 0.9 Calcium 9.0 Procalcitonin 0.11 H Urine Color Yellow Urine Clarity Clear Urine pH 7.0 Ur Specific [place] 1.005 Urine Protein 100 H Urine Glucose (UA) Normal Urine Ketones Negative Urine Occult Blood 10 H Urine Nitrite Negative Urine Bilirubin Negative Urine Urobilinogen Normal Ur Leukocyte Esterase Negative Urine RBC 0 SEEN Urine WBC 0 SEEN Ur Squamous Epith Cells 0 SEEN Urine Bacteria 0 SEEN Urine Mucus 0 SEEN Radiography Diagnostic Testing: Clinical Impression(s) from Imaging Studies Chest X-Ray 08/21/24 23:59 IMPRESSION: No evidence of active intrathoracic disease. Electronically Signed: Paula Byers MD at 1:44 EST Reading Location ID and State: [address] [place] [address] Tel , Service support , Chest x-ray as interpreted by the emergency medicine physician reveals no acute infiltrate pneumothorax or pleural effusion Discharge Plan Triage Chief Complaint: Fever ED Provider: Joe Hills Dx/Rx/DC Orders Clinical Impression: Neutropenic fever, Anemia of chronic renal failure, stage 4 (severe), Leukopenia, History of glomerulonephritis Prescriptions: No Action famotidine 20 mg tablet 20 mg PO DAILY polysaccharide iron complex [Ferrex 150] 150 mg iron capsule 150 mg PO DAILY rosuvastatin 20 mg tablet 20 mg PO DAILY sevelamer carbonate 800 mg tablet 1,600 mg PO TID Rx Instructions: must administer with a meal/food sodium bicarbonate 650 mg tablet 650 mg PO BID fluticasone propionate [Allergy Relief (fluticasone)] 50 mcg/actuation spray,suspension 1 spray intranasal DAILY PRN (Reason: allergy symptoms) Rx Instructions: administer into each nostril amlodipine 5 mg tablet 5 mg PO DAILY calcium citrate-vitamin D3 315 mg-6.25 mcg (250 unit) tablet 1 tab PO DAILY ondansetron 8 mg tablet,disintegrating 8 mg PO Q8H PRN (Reason: nausea and vomiting) Qty: 15 0RF tacrolimus 1 mg capsule 5 mg PO mycophenolate mofetil [CellCept] 250 mg capsule 500 mg PO BID sulfamethoxazole-trimethoprim [Bactrim] 400-80 mg tablet 1 tab PO DAILY valganciclovir 450 mg tablet 900 mg PO DAILY prednisone 5 mg tablet PO Primary Care Provider: Juan Carlos Benton Referrals: Juan Carlos Benton PA [Primary Care Provider] - Print Language: Kyrgyz Disposition Disposition: Acute Care Hospital Discharge Location: [facility]
[2024-08-22 01:08] LABS: Lactic Acid 0.9 mmol/L (0.4-1.9)
[2024-08-22 01:39] LABS: Differential Comment SCANNED; Differential Indicated SCAN CRITERIA MET; White Blood Count 0.9 K/mm3 (4.4-11.0)
[2024-08-22 01:41] LABS: Procalcitonin 0.11 ng/mL (0.00-0.09)
[2024-08-22 02:00] VITALS: BP 129/77; PULSE 92; RESP 18; TEMP 37.1; O2SAT 97
[2024-08-22 03:00] VITALS: BP 135/85; PULSE 99; RESP 18; TEMP 36.7; O2SAT 95
[2024-08-22 03:37] VITALS: BP 135/85; PULSE 99; RESP 18; TEMP 36.7; O2SAT 95
[2024-08-23 16:03] LABS: Pathologist Review Reviewed
== END 2024-08-22 03:57 | disposition short-term general hospital (02) ==
PROVIDERS: Emergency Provider Emergency Medicine; PCP Physician Assistant; Visit Provider Emergency Medicine
DX: D70.9 Neutropenia, unspecified (principal); N18.4 Chronic kidney disease, stage 4 (severe); E78.00 Pure hypercholesterolemia, unspecified; I12.9 Hypertensive chronic kidney disease with stage 1 through stage 4 chronic kidney disease, or unspecified chronic kidney disease; Z87.448 Personal history of other diseases of urinary system; Z94.0 Kidney transplant status; K21.9 Gastro-esophageal reflux disease without esophagitis; Z79.899 Other long term (current) drug therapy; D63.1 Anemia in chronic kidney disease
CPT/HCPCS: 71046; 80048; 81001; 83605; 84145; 85025; 87040; 87086; 87633; 96365; 96366; 99283; A4216

== ENCOUNTER 2024-10-06 09:31 | Emergency (ER) | payer OTHER, MEDICARE, SELFPAY ==
[2024-10-06 09:32] VITALS: BP 150/89; PULSE 119; RESP 16; TEMP 36.3; O2SAT 98; BMI 21.7
--- NOTE | 2024-10-06 10:02 | ED.RN ---
PT WAS ABLE TO GET A APPT WITH ENT SO DECIDED TO GO THERE INSTEAD
== END 2024-10-06 10:00 | disposition left against medical advice (07) ==
LOC: ED 10:03
PROVIDERS: PCP Physician Assistant
DX: J02.9 Acute pharyngitis, unspecified (principal)
CPT/HCPCS: 87651

== ENCOUNTER → 2024-10-06 | Outpatient (CLI) | payer OTHER, MEDICARE, SELFPAY | END | disposition home or self-care (01) | LOC: LABSPEC 15:13 | PROVIDERS: PCP Physician Assistant | DX: J02.9 Acute pharyngitis, unspecified (principal) | CPT/HCPCS: 87070 ==